=== PATIENT | male | born 1960 | race Caucasian/White ===

== ENCOUNTER 2017-12-08 06:13 | Inpatient (IN) | payer MEDICARE, OTHER ==
[2017-12-08] MEDS ORDERED: DIPH,PERTUS(ACELL)TETVAC-LF 0.5 ML VIAL IM ONE (06:26)
[2017-12-08 06:50] LABS: Basophils # (A) 0.1 k/uL (0-0.2); Basophils % (A) 1 %; Eosinophils # (A) 0.1 k/uL (0-0.7); Eosinophils % (A) 1 %; HCT 36.5 % (39.0-53.0); HGB 11.8 gm/dL (13.0-17.5); Lymphocytes # (A) 1.6 k/uL (1.0-4.8); Lymphocytes % (A) 19 %; MCH 32.5 pg (25.0-35.0); MCHC 32.4 g/dL (31.0-37.0); MCV 100.3 fL (80.0-100.0); Mean Platelet Volume 7.5; Monocytes # (A) 0.8 k/uL (0-1.0); Monocytes % (A) 9 %; Neutrophils # (A) 5.8 k/uL (1.3-7.7); Neutrophils % (A) 68 %; Platelet Count 181 k/uL (150-450); RBC 3.64 m/uL (4.30-5.90); RDW 13.3 % (11.5-15.5); WBC 8.5 k/uL (3.8-10.6)
--- NOTE | 2017-12-08 06:54 | ED ---
Fall HPI - General Source: EMS Mode of arrival: EMS - History of Present Illness MD Complaint: fall -: minutes(s) Fall From: down stairs (#) When Fall Occurred: [address] [facility] [address] Fall Occurred: home Loss of Consciousness: none Prolonged Down Time?: no Severity: mild Context: tripped/slipped <NaderAlvin - Last Filed: 12/08/17 06:56> <Poli Saucedo - Last Filed: 12/08/17 09:36> - General Chief Complaint: Fall Stated Complaint: Fall,SOB Time Seen by Provider: 12/08/17 06:18 - Related Data Allergies Allergy/AdvReac Type Severity Reaction Status Date / Time No Known Allergies Allergy Verified 12/08/17 06:26 Review of Systems ROS Other: All systems not noted in ROS Statement are negative. Constitutional: Denies: fever, chills ENT: Denies: epistaxis Respiratory: Reports: dyspnea Cardiovascular: Reports: palpitations, edema. Denies: chest pain, orthopnea, syncope Gastrointestinal: Denies: abdominal pain, vomiting, diarrhea Genitourinary: Denies: dysuria Musculoskeletal: Denies: back pain Skin: Reports: lesions. Denies: rash Neurological: Denies: headache (Skin tear) <Alvin Doe - Last Filed: 12/08/17 06:56> ROS Other: All systems not noted in ROS Statement are negative. <Poli Saucedo - Last Filed: 12/08/17 09:36> ROS Statement: Those systems with pertinent positive or pertinent negative responses have been documented in the HPI. Past Medical History Past Medical History: Chest Pain / Angina, COPD, CVA/TIA, Hypertension, Pneumonia, Skin Disorder Additional Past Medical History / Comment(s): bad back, History of Any Multi-Drug Resistant Organisms: None Reported Past Surgical History: No Surgical Hx Reported Past Psychological History: Depression Smoking Status: Current every day smoker Past Alcohol Use History: Abuse, Daily Past Drug Use History: Marijuana <Alvin Doe - Last Filed: 12/08/17 06:56> General Exam Limitations: no limitations General appearance: alert, in distress Head exam: Present: atraumatic, normocephalic Eye exam: Present: normal appearance. Absent: scleral icterus, conjunctival injection ENT exam: Present: mucous membranes dry Neck exam: Present: normal inspection, full ROM. Absent: tenderness Respiratory exam: Present: respiratory distress (Tachypnea), rhonchi. Absent: wheezes, stridor Cardiovascular Exam: Present: normal rhythm, tachycardia, normal heart sounds. Absent: systolic murmur, diastolic murmur, rubs, gallop GI/Abdominal exam: Present: soft, other (Ascites) Extremities exam: Present: normal capillary refill, pedal edema. Absent: calf tenderness Back exam: Absent: CVA tenderness (R), CVA tenderness (L), vertebral tenderness Neurological exam: Present: alert, CN II-XII intact. Absent: motor sensory deficit Skin exam: Present: warm, dry, normal color, other (Skin tear and abrasion right forearm). Absent: rash <Alvin Doe - Last Filed: 12/08/17 06:56> Course <Alvin Doe - Last Filed: 12/08/17 06:56> <Poli Saucedo - Last Filed: 12/08/17 09:36> Vital Signs 12/08/17 12/08/17 06:16 07:07 Temperature 97.7 F Pulse Rate 132 H 129 H Respiratory 26 H 14 Rate Blood Pressure 151/109 102/83 O2 Sat by Pulse 99 96 Oximetry - Reevaluation(s) Reevaluation #1: 12/08/17 08:20 EKG shows sinus tachycardia 132. Motion artifact is present. NJ 124. QRS 60. QT 296. QTc 438. Right axis. Appearance of probable Q waves V1 and V2. No definite ST change. 12/08/17 09:28 Patient was reevaluated by myself, Dr. Saucedo. Patient resting comfortably in bed. Patient does have massive abdominal ascites and associated leg edema. Patient states he believes his dyspnea is secondary to his abdominal distention. Patient states he has been losing weight over the past several months with increasing ascites. Patient states he no longer sees Dr. Ramos. Patient states he previously was taking Vicodin 3 times a day however this was discontinued. 12/08/17 09:36 Case was discussed in detail with Dr. Mo, who will admit for hospital call. (Poli Saucedo) Medical Decision Making - Lab Data Result diagrams: 12/08/17 06:30 <Alvin Doe - Last Filed: 12/08/17 06:56> - Lab Data Result diagrams: 12/08/17 06:30 12/08/17 06:30 <LewisPoli - Last Filed: 12/08/17 09:36> - Lab Data Lab Results 12/08/17 12/08/17 12/08/17 Range/Units 06:30 06:30 06:30 WBC 8.5 (3.8-10.6) k/uL RBC 3.64 L (4.30-5.90) m/uL Hgb 11.8 L (13.0-17.5) gm/dL Hct 36.5 L (39.0-53.0) % MCV 100.3 H (80.0-100.0) fL MCH 32.5 (25.0-35.0) pg MCHC 32.4 (31.0-37.0) g/dL RDW 13.3 (11.5-15.5) % Plt Count 181 (150-450) k/uL Neutrophils % 68 % Lymphocytes % 19 % Monocytes % 9 % Eosinophils % 1 % Basophils % 1 % Neutrophils # 5.8 (1.3-7.7) k/uL Lymphocytes # 1.6 (1.0-4.8) k/uL Monocytes # 0.8 (0-1.0) k/uL Eosinophils # 0.1 (0-0.7) k/uL Basophils # 0.1 (0-0.2) k/uL PT (9.0-12.0) sec INR (<1.2) APTT (22.0-30.0) sec Sodium 140 (137-145) mmol/L Potassium 4.3 (3.5-5.1) mmol/L Chloride 107 (98-107) mmol/L Carbon Dioxide 24 (22-30) mmol/L Anion Gap 9 mmol/L BUN 7 L (9-20) mg/dL Creatinine 0.56 L (0.66-1.25) mg/dL Est GFR (CKD-EPI)AfAm >90 (>60 ml/min/1.73 sqM) Est GFR (CKD-EPI)NonAf >90 (>60 ml/min/1.73 sqM) Glucose 106 H (74-99) mg/dL Plasma Lactic Acid Naman 3.9 H* (0.7-2.0) mmol/L Calcium 8.2 L (8.4-10.2) mg/dL Total Bilirubin 1.9 H (0.2-1.3) mg/dL AST 100 H (17-59) U/L ALT 27 (21-72) U/L Alkaline Phosphatase 338 H (38-126) U/L Ammonia 24 (<30) umol/L Troponin I (0.000-0.034) ng/mL NT-Pro-B Natriuret Pep pg/mL Total Protein 8.2 (6.3-8.2) g/dL Albumin 2.8 L (3.5-5.0) g/dL Urine Color Urine Appearance (Clear) Urine pH (5.0-8.0) Ur Specific [place] (1.001-1.035) Urine Protein (Negative) Urine Glucose (UA) (Negative) Urine Ketones (Negative) Urine Blood (Negative) Urine Nitrite (Negative) Urine Bilirubin (Negative) Urine Urobilinogen (<2.0) mg/dL Ur Leukocyte Esterase (Negative) 12/08/17 12/08/17 12/08/17 Range/Units 06:30 06:30 07:10 WBC (3.8-10.6) k/uL RBC (4.30-5.90) m/uL Hgb (13.0-17.5) gm/dL Hct (39.0-53.0) % MCV (80.0-100.0) fL MCH (25.0-35.0) pg MCHC (31.0-37.0) g/dL RDW (11.5-15.5) % Plt Count (150-450) k/uL Neutrophils % % Lymphocytes % % Monocytes % % Eosinophils % % Basophils % % Neutrophils # (1.3-7.7) k/uL Lymphocytes # (1.0-4.8) k/uL Monocytes # (0-1.0) k/uL Eosinophils # (0-0.7) k/uL Basophils # (0-0.2) k/uL PT 11.1 (9.0-12.0) sec INR 1.2 H (<1.2) APTT 25.8 (22.0-30.0) sec Sodium (137-145) mmol/L Potassium (3.5-5.1) mmol/L Chloride (98-107) mmol/L Carbon Dioxide (22-30) mmol/L Anion Gap mmol/L BUN (9-20) mg/dL Creatinine (0.66-1.25) mg/dL Est GFR (CKD-EPI)AfAm (>60 ml/min/1.73 sqM) Est GFR (CKD-EPI)NonAf (>60 ml/min/1.73 sqM) Glucose (74-99) mg/dL Plasma Lactic Acid Naman (0.7-2.0) mmol/L Calcium (8.4-10.2) mg/dL Total Bilirubin (0.2-1.3) mg/dL AST (17-59) U/L ALT (21-72) U/L Alkaline Phosphatase (38-126) U/L Ammonia (<30) umol/L Troponin I <0.012 (0.000-0.034) ng/mL NT-Pro-B Natriuret Pep 188 pg/mL Total Protein (6.3-8.2) g/dL Albumin (3.5-5.0) g/dL Urine Color Urine Appearance (Clear) Urine pH (5.0-8.0) Ur Specific [place] (1.001-1.035) Urine Protein (Negative) Urine Glucose (UA) (Negative) Urine Ketones (Negative) Urine Blood (Negative) Urine Nitrite (Negative) Urine Bilirubin (Negative) Urine Urobilinogen (<2.0) mg/dL Ur Leukocyte Esterase (Negative) 12/08/17 Range/Units 08:46 WBC (3.8-10.6) k/uL RBC (4.30-5.90) m/uL Hgb (13.0-17.5) gm/dL Hct (39.0-53.0) % MCV (80.0-100.0) fL MCH (25.0-35.0) pg MCHC (31.0-37.0) g/dL RDW (11.5-15.5) % Plt Count (150-450) k/uL Neutrophils % % Lymphocytes % % Monocytes % % Eosinophils % % Basophils % % Neutrophils # (1.3-7.7) k/uL Lymphocytes # (1.0-4.8) k/uL Monocytes # (0-1.0) k/uL Eosinophils # (0-0.7) k/uL Basophils # (0-0.2) k/uL PT (9.0-12.0) sec INR (<1.2) APTT (22.0-30.0) sec Sodium (137-145) mmol/L Potassium (3.5-5.1) mmol/L Chloride (98-107) mmol/L Carbon Dioxide (22-30) mmol/L Anion Gap mmol/L BUN (9-20) mg/dL Creatinine (0.66-1.25) mg/dL Est GFR (CKD-EPI)AfAm (>60 ml/min/1.73 sqM) Est GFR (CKD-EPI)NonAf (>60 ml/min/1.73 sqM) Glucose (74-99) mg/dL Plasma Lactic Acid Naman (0.7-2.0) mmol/L Calcium (8.4-10.2) mg/dL Total Bilirubin (0.2-1.3) mg/dL AST (17-59) U/L ALT (21-72) U/L Alkaline Phosphatase (38-126) U/L Ammonia (<30) umol/L Troponin I (0.000-0.034) ng/mL NT-Pro-B Natriuret Pep pg/mL Total Protein (6.3-8.2) g/dL Albumin (3.5-5.0) g/dL Urine Color Light [place] Urine Appearance Clear (Clear) Urine pH 6.0 (5.0-8.0) Ur Specific [place] 1.014 (1.001-1.035) Urine Protein Trace H (Negative) Urine Glucose (UA) Negative (Negative) Urine Ketones Negative (Negative) Urine Blood Negative (Negative) Urine Nitrite Negative (Negative) Urine Bilirubin 1+ H (Negative) Urine Urobilinogen 12.0 (<2.0) mg/dL Ur Leukocyte Esterase Negative (Negative) Disposition <Alvin Doe - Last Filed: 12/08/17 06:56> Is patient prescribed a controlled substance at d/c from ED?: No Decision Time: 09:36 <Poli Saucedo - Last Filed: 12/08/17 09:36> Clinical Impression: Ascites Disposition: ADMITTED IP TO THIS [facility] Referrals: None,Stated [Primary Care Provider] - 1-2 days
[2017-12-08 06:58] LABS: INR 1.2 (<1.2); Partial Thromboplastin Time 25.8 sec (22.0-30.0); Prothrombin Time 11.1 sec (9.0-12.0)
[2017-12-08 07:05] LABS: ALT 27 U/L (21-72); AST 100 U/L (17-59); Albumin 2.8 g/dL (3.5-5.0); Alkaline Phosphatase 338 U/L (38-126); Anion Gap 9 mmol/L; Blood Urea Nitrogen 7 mg/dL (9-20); Calcium 8.2 mg/dL (8.4-10.2); Carbon Dioxide 24 mmol/L (22-30); Chloride 107 mmol/L (98-107); Glucose 106 mg/dL (74-99); Potassium 4.3 mmol/L (3.5-5.1); Sodium 140 mmol/L (137-145); Total Bilirubin 1.9 mg/dL (0.2-1.3); Total Protein 8.2 g/dL (6.3-8.2)
[2017-12-08 07:12] LABS: Lactic Acid, Venous 3.9 mmol/L (0.7-2.0)
--- NOTE | 2017-12-08 07:14 | XR ---
EXAM: XR Chest, 1 View CLINICAL HISTORY: ITS.REASON XR Reason: Fever Patient presents with SOB. H/x of COPD TECHNIQUE: Frontal view of the chest. COMPARISON: No relevant prior studies available. FINDINGS: Lungs: Low lung volumes. Right basilar atelectasis. Minimal patchy opacity in the right lateral lung. Pleural space: Small right pleural effusion. No pneumothorax. Heart: Unremarkable. No cardiomegaly. Mediastinum: Unremarkable. Bones/joints: Unremarkable. IMPRESSION: 1. Right basilar atelectasis and minimal patchy opacity in the right lateral lung. Favor low lung volumes and areas of atelectasis although pneumonia not excluded. 2. Small right pleural effusion
[2017-12-08] MEDS ORDERED: MORPHINE SULFATE 4 MG/ML SYRINGE IVP STA (08:10)
[2017-12-08 09:11] LABS: Appearance,Urine Clear (Clear); Bilirubin,Urine 1+ (Negative); Blood,Urine Negative (Negative); Color,Urine Light Orange; Glucose,Urine (UA) Negative (Negative); Ketones,Urine Negative (Negative); Leukocyte Esterase,Urine Negative (Negative); Nitrite,Urine Negative (Negative); Protein,Urine Trace (Negative); Specific Gravity,Urine 1.014 (1.001-1.035)
[2017-12-08] MEDS ORDERED: NALOXONE 0.4 MG/ML 1 ML VIAL IV PRN (09:36)
[2017-12-08] MEDS ORDERED: FUROSEMIDE 10 MG/ML 4 ML VIAL IV STA (14:37)
[2017-12-08] MEDS ORDERED: MORPHINE ORAL SOLN 10 MG/5 ML CUP PO PRN (14:39)
[2017-12-08] MEDS ORDERED: IOPAMIDOL-300 CONTRAST 30 ML VIAL (ORAL USE) PO PRN (14:40)
[2017-12-08] MEDS ORDERED: THIAMINE 100 MG/ML 2 ML VIAL IM STA (14:44)
[2017-12-08] MEDS ORDERED: LORazepam 2 MG/ML INJ IV PRN ×2 (14:44)
--- NOTE | 2017-12-08 15:01 | P.HPIM ---
History of Present Illness H&P Date: 12/08/17 Chief Complaint: fall Patient is a 57-year-old male with a past medical history of hypertension, COPD, chronic back pain, prior stroke, and coronary artery disease who presented to the ER via EMS after a fall. Patient had to crawl to his phone was unable to get himself up. He therefore called EMS and brought to the hospital. On initial evaluation his found to be tachycardic. Initial laboratory analysis showed an elevated total bilirubin and elevated alkaline phosphatase and AST. His albumin was slightly low at 2.8 and PTT was within normal range at 11.1. His lactic acid was slightly elevated at 3.9. Urinalysis was negative. CBC demonstrated a macrocytic anemia. Chest x-ray showed possible right lower lobe atelectasis versus infiltrate. The ER was concerned about gross ascites on clinical exam and asked for admission. Patient seen and examined at bedside in the emergency department. He states today he was walking up the stairs and fell. He was unable to get up and crawled to the phone and called EMS. He suffered skin tears to his upper arms. He denies any unusual pain. He is complaining of significant lower back pain which he has chronically. He states that he has been having edema in his lower extremities and started to notice bloating of his stomach for the last 3-4 months. He has been chronically short of breath times one year. He last saw a doctor approximately 6 months to one year ago but was discharged from Dr. Marie's practice due to chronic narcotic use. He reports no history of known liver disease or hepatitis but he does drink 2 beers daily for numerous years. He reports that he had heavier alcohol use in his 20s. He also reports intermittent diarrhea and constipation. He has also had episodes of sudden onset bowel urgency that led to PVCs or possible blood running down his legs if he could not get to the toilet in time. He also reports urinary urgency. He has a chronic cough which is unchanged and nonproductive. He is not taking any medications currently but states that he was taking about 8 pills including chronic Vicodin use. He reports no recent fevers, chills, nausea, or vomiting. He has lost approximately 30 pounds. He does not report any light stools or dark urine. He has never seen a wheel buffer in the past. He lives alone and his daughter who is 15 stays with a guardian. Review of Systems Pertinent positives and negatives as discussed in HPI, a complete review of systems was performed and all other systems are negative. Past Medical History Past Medical History: Chest Pain / Angina, COPD, CVA/TIA, Hypertension, Pneumonia, Skin Disorder Additional Past Medical History / Comment(s): Chronic back pain, depression History of Any Multi-Drug Resistant Organisms: None Reported Past Surgical History: No Surgical Hx Reported Past Psychological History: Depression Smoking Status: Current every day smoker Past Alcohol Use History: Abuse, Daily Additional Past Alcohol Use History / Comment(s): Drinks 2 beers daily. History of heavy alcohol use in the past. Past Drug Use History: Marijuana - Past Family History Mother Additional Family Medical History / Comment(s): from a motor vehicle accident in her early 30s Father Additional Family Medical History / Comment(s): Pased away from myocardial infarction at age 54 Medications and Allergies Home Medications Medication Instructions Recorded Confirmed Type No Known Home Medications 12/08/17 12/08/17 History Allergies Allergy/AdvReac Type Severity Reaction Status Date / Time No Known Allergies Allergy Verified 12/08/17 11:21 Physical Exam Osteopathic Statement: *. No significant issues noted on an osteopathic structural exam other than those noted in the History and Physical/Consult. Vitals: Vital Signs Temp Pulse Resp BP Pulse Ox 12/08/17 13:30 16 123/96 98 12/08/17 13:00 116 H 16 102/91 100 12/08/17 12:30 18 116/103 97 12/08/17 12:00 106 H 17 102/88 98 12/08/17 11:30 108 H 16 108/85 99 12/08/17 11:00 18 121/96 99 12/08/17 10:30 110 H 12 122/97 98 12/08/17 10:00 107 H 17 118/91 99 12/08/17 09:30 111 H 16 106/84 97 12/08/17 09:00 110 H 11 L 105/88 98 12/08/17 08:30 115 H 19 108/87 98 12/08/17 08:00 14 102/82 97 12/08/17 07:30 10 L 106/91 96 12/08/17 07:07 129 H 14 102/83 96 12/08/17 06:16 97.7 F 132 H 26 H 151/109 99 Intake and Output 12/07/17 12/08/17 12/08/17 22:59 06:59 14:59 Other: Weight 103.873 kg General: non toxic, moderate distress, disheveled, appears at stated age, normal weight Derm: Multiple abrasions right upper extremity the largest measuring approximately 1.5 cm, multiple bruises bilateral upper extremities, warm, dry Head: atraumatic, normocephalic, symmetric Eyes: EOMI, no lid lag, anicteric sclera, pupils equal round reactive to light ENT: Nose and ears atraumatic, no thrush, no pharyngeal erythema Neck: No thyromegaly, no cervical lymphadenopathy, trachea midline, supple Mouth: no lip lesion, mucus membranes moist Cardiovascular: S1 and S2 tachycardic, no murmur, positive posterior tibial pulse bilateral, 4+ edema bilateral lower extremities, capillary refill less than 2 seconds Lungs: CTA bilateral, no rhonchi, no rales , no accessory muscle use Abdominal: Grossly distended with A medusa and ascites, soft, nontender to palpation, no guarding, no appreciable organomegaly but limited due to ascites, normal bowel sounds Ext: no gross muscle atrophy, strength 4 out of 5 in bilateral upper extremities and 3 out of 5 in bilateral lower extremities, no contractures, Neuro: CN II-XI grossly intact, light touch intact all 4 extremities, Psych: Alert, oriented, appropriate affect Results CBC & Chem 7: 12/08/17 06:30 12/08/17 06:30 Labs: Abnormal Lab Results - Last 24 Hours (Table) 12/08/17 12/08/17 12/08/17 Range/Units 06:30 06:30 06:30 RBC 3.64 L (4.30-5.90) m/uL Hgb 11.8 L (13.0-17.5) gm/dL Hct 36.5 L (39.0-53.0) % MCV 100.3 H (80.0-100.0) fL INR (<1.2) BUN 7 L (9-20) mg/dL Creatinine 0.56 L (0.66-1.25) mg/dL Glucose 106 H (74-99) mg/dL Plasma Lactic Acid Naman 3.9 H* (0.7-2.0) mmol/L Calcium 8.2 L (8.4-10.2) mg/dL Total Bilirubin 1.9 H (0.2-1.3) mg/dL AST 100 H (17-59) U/L Alkaline Phosphatase 338 H (38-126) U/L Albumin 2.8 L (3.5-5.0) g/dL Urine Protein (Negative) Urine Bilirubin (Negative) 12/08/17 12/08/17 12/08/17 Range/Units 06:30 08:46 10:39 RBC (4.30-5.90) m/uL Hgb (13.0-17.5) gm/dL Hct (39.0-53.0) % MCV (80.0-100.0) fL INR 1.2 H (<1.2) BUN (9-20) mg/dL Creatinine (0.66-1.25) mg/dL Glucose (74-99) mg/dL Plasma Lactic Acid Naman 2.5 H* (0.7-2.0) mmol/L Calcium (8.4-10.2) mg/dL Total Bilirubin (0.2-1.3) mg/dL AST (17-59) U/L Alkaline Phosphatase (38-126) U/L Albumin (3.5-5.0) g/dL Urine Protein Trace H (Negative) Urine Bilirubin 1+ H (Negative) Chest x-ray: report reviewed, image reviewed (RLL atelectasis) Thrombosis Risk Factor Assmnt - DVT/VTE Prophylaxis DVT/VTE Prophylaxis: Pharmacologic Prophylaxis ordered - Choose All That Apply Each Factor Represents 1 point: Abnormal pulmonary function (COPD), Age 41-60 years, Obesity (BMI >25), Swollen legs (current), Varicose veins Thrombosis Risk Factor Assessment Total Risk Factor Score: 5 Thrombosis Risk Factor Assessment Level: High Risk Assessment and Plan Assessment: Ascites suspect underlying cirrhosis -Lasix IV twice a day -GI consultation -CT abdomen and pelvis -Check acute hepatitis profile, Tylenol level - CMP and INR in AM -Will need paracentesis but this will likely be done on fall with multiple skin tears -Fall precautions -PT/OT evaluation -May need alf facility on discharge EtOH abuse with possible impending DTs -Thiamine supplementation -[facility] protocol Macrocytic anemia -Check B12, TSH, and folic acid -Repeat CBC in a.m. Elevated lactic acid -Likely secondary to liver dysfunction, decreasing and recheck -Contraindicated for bolus due to massive amounts of fluid overload Chronic low back pain -As needed pain medication The patient is admitted with an anticipated greater than 2 midnight stay for evaluation of ascites with likely underlying liver disease. Surrogate decision-maker: Tony Reaves CODE STATUS:Full DVT prophylaxis: Lovenox Discussed with: PAtient, nursing, ED physician Anticipated discharge date: 3-[address]: [facility] A total of 75 minutes was spent on the care of this complex patient more than 50 % of the time was spent in counseling and care coordination.
[2017-12-08] MEDS: MORPHINE SULFATE 4 MG/ML SYRINGE IVP PRN ×2 (15:18→20:51)
[2017-12-08] MEDS: SODIUM CHLORIDE 0.9% 1,000 ML IV SCH (15:35)
--- NOTE | 2017-12-08 17:12 | CT ---
EXAMINATION TYPE: CT abdomen pelvis wo con DATE OF EXAM: 12/08/2017 COMPARISON: None HISTORY: abdominal pain and distention CT DLP: 1093 mGycm Automated exposure control for dose reduction was used. TECHNIQUE: Helical acquisition of images was performed from the lung bases through the pelvis. FINDINGS: There is right pleural effusion. Heart size is normal. There is no pericardial effusion. There is massive ascites. Liver is irregular consistent with cirrhosis. There is variable hypodensity throughout the liver. Spleen is intact. There is no pancreatic mass. There is no evidence of a bowel obstruction. The stomach is large. Small bowel is normally opacified with the oral contrast. There i s no retroperitoneal adenopathy. Kidneys have fairly normal size. There is no hydronephrosis. The lila dder distends smoothly. I see no mesenteric adenopathy. There is no evidence of free air. Lumbar spin e is intact. Bony pelvis is intact. IMPRESSION: MASSIVE ASCITES. MODERATE SIZE RIGHT PLEURAL EFFUSION. CHANGES IN THE LIVER CONSISTENT WITH ADVANCED CIRRHOSIS.
[2017-12-08] MEDS: FUROSEMIDE 10 MG/ML 4 ML VIAL IV SCH (20:46)
[2017-12-08] MEDS: THIAMINE 100 MG TAB PO SCH (20:46)
[2017-12-08] MEDS: NICOTINE 14MG/24HR PATCH TRANSDERM SCH (20:47)
[2017-12-08 22:58] LABS: Hepatitis A Antibody IgM Non-Reactive (Non-Reactive); Hepatitis B Core IgM Non-Reactive (Non-Reactive)
[2017-12-09] MEDS: MORPHINE SULFATE 4 MG/ML SYRINGE IVP PRN ×5 (00:52→21:24)
[2017-12-09 06:35] LABS: INR 1.3 (<1.2); Prothrombin Time 12.5 sec (9.0-12.0)
[2017-12-09 06:40] LABS: ALT 26 U/L (21-72); AST 74 U/L (17-59); Acetaminophen <10.0 ug/mL; Albumin 2.2 g/dL (3.5-5.0); Alkaline Phosphatase 266 U/L (38-126); Anion Gap 5 mmol/L; Blood Urea Nitrogen 8 mg/dL (9-20); Calcium 7.7 mg/dL (8.4-10.2); Carbon Dioxide 26 mmol/L (22-30); Chloride 105 mmol/L (98-107); Glucose 93 mg/dL (74-99); Magnesium 1.6 mg/dL (1.6-2.3); Potassium 3.4 mmol/L (3.5-5.1); Sodium 136 mmol/L (137-145); Total Bilirubin 2.7 mg/dL (0.2-1.3); Total Protein 6.8 g/dL (6.3-8.2)
[2017-12-09] MEDS: SODIUM CHLORIDE 0.9% 1,000 ML IV SCH (09:18)
[2017-12-09] MEDS: FUROSEMIDE 10 MG/ML 4 ML VIAL IV SCH ×3 (09:27→23:15)
[2017-12-09] MEDS: ENOXAPARIN 40 MG/0.4 ML SYRINGE SQ SCH (09:27)
[2017-12-09] MEDS: NICOTINE 14MG/24HR PATCH TRANSDERM SCH (09:28)
[2017-12-09] MEDS: MULTIVITAMINS, THERA 1 EACH TAB PO SCH (12:43)
[2017-12-09] MEDS: THIAMINE 100 MG TAB PO SCH ×2 (12:43→16:56)
[2017-12-09] MEDS ORDERED: POTASSIUM BICARBONATE/CIT AC 20 MEQ TABLET.EFF PO ONE (12:57)
--- NOTE | 2017-12-09 14:03 | CONS ---
CONSULTATION DATE OF CONSULTATION: December 09, 2017. REASON FOR CONSULTATION: Massive ascites and liver cirrhosis. REQUESTING PHYSICIAN: Dr. Mo. HISTORY OF PRESENT ILLNESS: The patient is a 57 -year-old white male admitted to the hospital with significant abdominal distention for the last several months duration. Apparently, he was at home, was unable to ambulate well and he fell and caught himself and unable to get up. We called EMS and he was subsequently brought to the emergency room. The patient has not seen a physician for the last 6 months duration. He has been having abdominal distention for the last 6 months progressively getting worse. Some vague abdominal discomfort. No nausea, no vomiting. The patient has history of alcohol abuse in the past but he says that it has not been heavy. He was a [id number] drinker. Used to drink two 24 ounces of liquor every day. Much more heavily in his younger days. No history of jaundice or hepatitis in the past. He came to the emergency room and had a CT of the abdomen and pelvis done that showed evidence of and pleuritic appearing liver. He states that he lost about 30 pounds in the last 6 months duration. PAST MEDICAL HISTORY: Significant for COPD, hypertension. Past surgical history unremarkable. MEDICATIONS: At home none. ALLERGIES: No known drug allergies. FAMILY HISTORY: Mother from motor vehicle accident. Father had IA. REVIEW OF SYSTEMS: Cardiopulmonary: No chest pain or shortness of breath. Genitourinary: No dysuria or hematuria. Musculoskeletal: Weakness. Neurological: Unremarkable. Psychiatric: Unremarkable. ENT/VISION: Unremarkable. Constitutional: Weight loss of 30 pounds. No fevers, chills or night sweats. PHYSICAL EXAMINATION: He appears comfortable in no apparent distress. Vital signs stable. Blood pressure is 100/68, pulse rate 108, temperature 98.4. HEENT examination unremarkable. Conjunctivae pink. Sclerae anicteric. Oral cavity no lesions. Neck no jugular venous distention or lymph node enlargement. Chest was clear to auscultation. HEART: Regular rate and rhythm. ABDOMEN: Soft, extremely distended. There was significant amount of free fluid noted. There was an umbilical hernia seen. EXTREMITIES: 2+ pedal edema. Skin no rashes. NEUROLOGIC: Alert and oriented x3. No focal deficits. LAB: INR is 1.3. WBC 8.5, hemoglobin 11.5, platelets are normal. BUN is 8, creatinine 0.47, T-bilirubin 2.7, AST 74, ALT 26, alkaline phosphatase 266. Hepatitis A, B, and C negative. CT of the abdomen and pelvis showed massive ascites with moderate right- sided pleural effusion and changes in the liver consistent with advanced cirrhosis. IMPRESSION: 1. Patient with history of [id number] alcohol abuse for several years duration, presents to the hospital with new onset ascites/severe abdominal distention. CT of the abdomen showed massive ascites and cirrhotic appearing liver. Hepatitis serologies for A, B, and C were negative. 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 2. Progressive weight loss of 30 pounds over the last 6 months duration. 3. Multiple falls probably related to muscle weakness. RECOMMENDATIONS: 1. Admit him for large volume paracentesis for diagnostic and therapeutic purposes. 2. Continue with the diuretics with Lasix 40 mg q.12 hours and we will add Aldactone 100 mg daily. 3. Low-salt diet. 4. I had a lengthy discussion with the patient for management of advanced liver disease and advised him to quit drinking alcohol completely. Thank you for this consultation. We will follow the patient closely with you during this hospital stay. MMODL / IJN: [id number] /
[2017-12-09] MEDS: SPIRONOLACTONE 25 MG TAB PO SCH (14:21)
[2017-12-09] MEDS: MAGNESIUM SULFATE-D5W PMX 1 GM in DEXTROSE/WATER 1 100ML.BAG IVPB SCH ×2 (14:22→16:28)
[2017-12-09] MEDS: LORazepam 2 MG/ML INJ IV PRN (21:28)
--- NOTE | 2017-12-09 21:31 | P.PN ---
Subjective Progress Note Date: 12/09/17 Principal diagnosis: Abdominal Pain Patient is a 57-year-old male with a past medical history of hypertension, COPD, chronic back pain, prior stroke, and coronary artery disease who presented to the ER via EMS after a fall. Patient had to crawl to his phone was unable to get himself up. He therefore called EMS and brought to the hospital. On initial evaluation his found to be tachycardic. Initial laboratory analysis showed an elevated total bilirubin and elevated alkaline phosphatase and AST. His albumin was slightly low at 2.8 and PTT was within normal range at 11.1. His lactic acid was slightly elevated at 3.9. Urinalysis was negative. CBC demonstrated a macrocytic anemia. Chest x-ray showed possible right lower lobe atelectasis versus infiltrate. The ER was concerned about gross ascites on clinical exam and asked for admission. He underwent a CT abdomen and pelvis which showed cirrhosis with gross ascites. He was placed on Lasix. On the morning of 12/09 he still had significant ascites and Aldactone was added. He was seen by GI. Jayden seen and examined at bedside. He complains of shortness of breath and increasing back pain. He states has been going to the bathroom quite frequently. He is also having some episodes of incontinence. No diarrhea or constipation noted at this time. Discussed plan of care and plans for paracentesis in a.m. Patient is in agreement. Objective - Vital Signs Vital signs: Vital Signs Temp 98.2 F 12/09/17 16:00 Pulse 109 H 12/09/17 16:00 Resp 20 12/09/17 16:00 BP 106/73 12/09/17 16:00 Pulse Ox 98 12/09/17 16:00 Intake & Output 12/09/17 12/09/17 12/10/17 06:59 18:59 06:59 Intake Total 440 908 500 Output Total 300 2050 Balance 140 -1142 500 Weight 97.2 kg Intake: Intake, IV Titration 200 Amount Magnesium Sulfate-D5w Pmx 200 1 gm In Dextrose/Water 1 100ml.bag @ 100 mls/hr IVPB Q1H [facility] Rx#: [id number] Oral 440 708 500 Output: Urine 300 2050 Other: Voiding Method Urinal - Exam General: non toxic, moderate distress, disheveled, appears at stated age, normal weight Derm: Multiple abrasions right upper extremity with dressings inplace, multiple bruises bilateral upper extremities, warm, dry Head: atraumatic, normocephalic, symmetric Eyes: EOMI, no lid lag, anicteric sclera, pupils equal round reactive to light Cardiovascular: S1 and S2 tachycardic, no murmur, positive posterior tibial pulse bilateral, 4+ edema bilateral lower extremities, capillary refill less than 2 seconds Lungs: CTA bilateral, no rhonchi, no rales , no accessory muscle use Abdominal: Grossly distended with A medusa and ascites, soft, nontender to palpation, no guarding, no appreciable organomegaly but limited due to ascites, normal bowel sounds Ext: no gross muscle atrophy, strength 4 out of 5 in bilateral upper extremities and 3 out of 5 in bilateral lower extremities, no contractures, Neuro: CN II-XI grossly intact, light touch intact all 4 extremities, Psych: Alert, oriented, appropriate affect - Labs CBC & Chem 7: 12/08/17 06:30 12/09/17 06:04 Labs: Abnormal Lab Results - Last 24 Hours (Table) 12/09/17 12/09/17 Range/Units 06:04 06:04 PT 12.5 H (9.0-12.0) sec INR 1.3 H (<1.2) Sodium 136 L (137-145) mmol/L Potassium 3.4 L (3.5-5.1) mmol/L BUN 8 L (9-20) mg/dL Creatinine 0.47 L (0.66-1.25) mg/dL Calcium 7.7 L (8.4-10.2) mg/dL Total Bilirubin 2.7 H (0.2-1.3) mg/dL AST 74 H (17-59) U/L Alkaline Phosphatase 266 H (38-126) U/L Albumin 2.2 L (3.5-5.0) g/dL Microbiology - Last 24 Hours (Table) 12/08/17 08:46 Urine Culture - Final Urine,Catheterized 12/08/17 06:30 Blood Culture - Preliminary Blood No Growth after 24 hours Assessment and Plan Assessment: Ascites suspect underlying cirrhosis -Lasix IV increased to TID, Added aldactone -GI recs appreciated -CT abdomen and pelvis - Acute hepatitis panel negative, Tylenol level negative - CMP and INR in AM -Will need paracentesis hopefully in a.m. with diagnostic and therapeutic Fall with multiple skin tears -Fall precautions -PT/OT evaluation -May need detention facility on discharge EtOH abuse with possible impending DTs -Thiamine supplementation -CIWA protocol Hypokalemia and hypomagnesemia -Replace per protocol Severe protein calorie malnutrition -Supplementation -May be component of chronic liver disease Macrocytic anemia -Check B12, TSH, and folic acid -Repeat CBC in a.m. Chronic low back pain -As needed pain medication Elevated lactic acid, improved DVT prophylaxis: Lovenox Discussed with: Patient, nursing Anticipated discharge date: 3-[address]: SNF A total of 35 minutes was spent on the care of this complex patient more than 50 % of the time was spent in counseling and care coordination.
[2017-12-10] MEDS: LORazepam 2 MG/ML INJ IV PRN (06:07)
[2017-12-10 08:30] LABS: INR 1.3 (<1.2); Prothrombin Time 12.3 sec (9.0-12.0)
[2017-12-10 08:37] LABS: ALT 28 U/L (21-72); AST 80 U/L (17-59); Albumin 2.3 g/dL (3.5-5.0); Alkaline Phosphatase 257 U/L (38-126); Anion Gap 7 mmol/L; Blood Urea Nitrogen 9 mg/dL (9-20); Calcium 8.1 mg/dL (8.4-10.2); Carbon Dioxide 27 mmol/L (22-30); Chloride 102 mmol/L (98-107); Glucose 85 mg/dL (74-99); Potassium 3.2 mmol/L (3.5-5.1); Sodium 136 mmol/L (137-145); Total Protein 7.1 g/dL (6.3-8.2)
[2017-12-10 08:38] LABS: HCT 30.4 % (39.0-53.0); MCH 32.9 pg (25.0-35.0); MCHC 32.7 g/dL (31.0-37.0); MCV 100.9 fL (80.0-100.0); Mean Platelet Volume 8.1; Platelet Count 134 k/uL (150-450); RBC 3.02 m/uL (4.30-5.90); RDW 13.1 % (11.5-15.5)
[2017-12-10 08:44] LABS: HGB 9.9 gm/dL (13.0-17.5)
[2017-12-10 09:27] LABS: Folate, Serum 1.6 ng/mL
[2017-12-10] MEDS: FUROSEMIDE 10 MG/ML 4 ML VIAL IV SCH ×2 (10:03→17:36)
[2017-12-10] MEDS: SPIRONOLACTONE 25 MG TAB PO SCH (10:03)
[2017-12-10] MEDS: NICOTINE 14MG/24HR PATCH TRANSDERM SCH (10:04)
--- NOTE | 2017-12-10 10:26 | P.PN ---
Subjective Progress Note Date: 12/10/17 Principal diagnosis: Liver cirrhosis EtOH abuse massive ascites 57-year-old gentleman history of EtOH abuse admitted with worsening abdominal distention ascites. Scheduled for paracentesis today. Nursing staff reports alcohol withdrawal symptoms last night more milder this morning. Total bilirubin 4.0. AST 80. ALT 28. AP 257. INR 1.3. Hemoglobin 9.9. White count 8.0. Platelet 134. Objective - Vital Signs Vital signs: Vital Signs Temp 97.9 F 12/10/17 02:50 Pulse 120 H 12/10/17 02:50 Resp 19 12/10/17 02:50 BP 106/72 12/10/17 02:50 Pulse Ox 96 12/10/17 02:50 Intake & Output 12/09/17 12/10/17 12/10/17 18:59 06:59 18:59 Intake Total 908 500 Output Total 2049 1000 Balance -1142 -500 Weight 80 kg Intake: Intake, IV Titration 200 Amount Magnesium Sulfate-D5w Pmx 200 1 gm In Dextrose/Water 1 100ml.bag @ 100 mls/hr IVPB Q1H [facility] Rx#: [id number] Oral 708 500 Output: Urine 2049 1000 Other: Voiding Method Urinal - Exam General appearance: The patient is alert, to self only in no acute distress confused. HET: Head is normocephalic and atraumatic. Pupils are equal and reactive. Oropharynx is clear without lesions. Neck: Supple without lymphadenopathy. Trachea midline. Heart: S1 S2. Regular rate and rhythm. Lungs: No crackles or wheezes are heard. Abdomen: Soft, grossly distended with massive ascites with bowel sounds. No peritoneal signs. No palpable organomegaly or masses. Extremities: Normal skin color and turgor. No cyanosis, rash, ulceration, clubbing, or edema. Radial and pedal pulses are 2/4 bilaterally. Blackman with dark sarah urine Neurological: No focal deficits. Strength and sensation are grossly intact. - Labs CBC & Chem 7: 12/10/17 07:00 12/10/17 07:00 Labs: Abnormal Lab Results - Last 24 Hours (Table) 12/10/17 12/10/17 12/10/17 Range/Units 07:00 07:00 07:00 RBC 3.02 L (4.30-5.90) m/uL Hgb 9.9 L D (13.0-17.5) gm/dL Hct 30.4 L (39.0-53.0) % MCV 100.9 H (80.0-100.0) fL Plt Count 134 L (150-450) k/uL PT 12.3 H (9.0-12.0) sec INR 1.3 H (<1.2) Sodium 136 L (137-145) mmol/L Potassium 3.2 L (3.5-5.1) mmol/L Creatinine 0.46 L (0.66-1.25) mg/dL Calcium 8.1 L (8.4-10.2) mg/dL Total Bilirubin 4.0 H (0.2-1.3) mg/dL AST 80 H (17-59) U/L Alkaline Phosphatase 257 H (38-126) U/L Albumin 2.3 L (3.5-5.0) g/dL Microbiology - Last 24 Hours (Table) 12/08/17 06:30 Blood Culture - Preliminary Blood No Growth after 48 hours 12/08/17 08:46 Urine Culture - Final Urine,Catheterized Assessment and Plan (1) Ascites Current Visit: Yes Status: Acute Code(s): R18.8 - OTHER ASCITES SNOMED Code(s): 988189432 (2) Liver cirrhosis Current Visit: Yes Status: Acute Code(s): K74.60 - UNSPECIFIED CIRRHOSIS OF LIVER SNOMED Code(s): 85044596 (3) Portal hypertension Current Visit: Yes Status: Acute Code(s): K76.6 - PORTAL HYPERTENSION SNOMED Code(s): 25451823 (4) Alcohol abuse Current Visit: Yes Status: Chronic Code(s): F10.10 - ALCOHOL ABUSE, UNCOMPLICATED SNOMED Code(s): 68244534 (5) Alcohol withdrawal Current Visit: Yes Status: Acute Code(s): F10.239 - ALCOHOL DEPENDENCE WITH WITHDRAWAL, UNSPECIFIED SNOMED Code(s): 011354259 (6) Alcoholic hepatitis with ascites Current Visit: Yes Status: Acute Code(s): K70.11 - ALCOHOLIC HEPATITIS WITH ASCITES SNOMED Code(s): 998813979 (7) Coagulopathy Narrative/Plan: Mild Current Visit: Yes Status: Acute Code(s): D68.9 - COAGULATION DEFECT, UNSPECIFIED SNOMED Code(s): 58583598 Plan: 1. Therapeutic diagnostic paracentesis. Patient will require post- paracentesis albumin. We'll check ammonia level. [facility] protocol. 2. Low-salt diet. 3. Continue Lasix and Aldactone. Assessment and plan a care discussed with Dr. Baker
[2017-12-10] MEDS ORDERED: POTASSIUM BICARBONATE/CIT AC 20 MEQ TABLET.EFF PO ONE (10:36)
[2017-12-10] MEDS ORDERED: SPIRONOLACTONE 25 MG TAB PO STA (10:37)
--- NOTE | 2017-12-10 10:51 | P.PN ---
Subjective Progress Note Date: 12/10/17 Principal diagnosis: Abdominal Pain Patient is a 57-year-old male with a past medical history of hypertension, COPD, chronic back pain, prior stroke, and coronary artery disease who presented to the ER via EMS after a fall. Patient had to crawl to his phone was unable to get himself up. He therefore called EMS and brought to the hospital. On initial evaluation his found to be tachycardic. Initial laboratory analysis showed an elevated total bilirubin and elevated alkaline phosphatase and AST. His albumin was slightly low at 2.8 and PTT was within normal range at 11.1. His lactic acid was slightly elevated at 3.9. Urinalysis was negative. CBC demonstrated a macrocytic anemia. Chest x-ray showed possible right lower lobe atelectasis versus infiltrate. The ER was concerned about gross ascites on clinical exam and asked for admission. He underwent a CT abdomen and pelvis which showed cirrhosis with gross ascites. He was placed on Lasix. On the morning of 12/09 he still had significant ascites and Aldactone was added. He was seen by GI. Plan is for paracentesis today. Lasix and aldactone increased. Went into DTs on the night of 12/10 and had increasing confusion. Patient seen and examined at bedside. Still feeling short of breath. Complaining of increasing abdominal pain. Wants to go home. Currently alert and oriented 3 but lethargic. Neck asleep and then talks about nonsensical things. Objective - Vital Signs Vital signs: Vital Signs Temp 97.9 F 12/10/17 02:50 Pulse 120 H 12/10/17 02:50 Resp 19 12/10/17 02:50 BP 106/72 12/10/17 02:50 Pulse Ox 96 12/10/17 02:50 Intake & Output 12/09/17 12/10/17 12/10/17 18:59 06:59 18:59 Intake Total 908 500 Output Total 2049 1000 Balance -1142 -500 Weight 80 kg Intake: Intake, IV Titration 200 Amount Magnesium Sulfate-D5w Pmx 200 1 gm In Dextrose/Water 1 100ml.bag @ 100 mls/hr IVPB Q1H [facility] Rx#: [id number] Oral 708 500 Output: Urine 2049 1000 Other: Voiding Method Urinal - Exam General: non toxic, mild distress, disheveled, appears at stated age, normal weight Derm: Multiple abrasions right upper extremity with dressings inplace, multiple bruises bilateral upper extremities, warm, dry Head: atraumatic, normocephalic, symmetric Eyes: EOMI, no lid lag, anicteric sclera, pupils equal round reactive to light Cardiovascular: S1 and S2 tachycardic, no murmur, positive posterior tibial pulse bilateral, 4+ edema bilateral lower extremities, capillary refill less than 2 seconds Lungs: CTA bilateral, no rhonchi, no rales , no accessory muscle use Abdominal: Grossly distended with A medusa and ascites, soft, nontender to palpation, no guarding, no appreciable organomegaly but limited due to ascites, normal bowel sounds Ext: no gross muscle atrophy, no contractures, Neuro: CN II-XI grossly intact, light touch intact all 4 extremities, Psych: Alert, oriented, appropriate affect - Labs CBC & Chem 7: 12/10/17 07:00 12/10/17 07:00 Labs: Abnormal Lab Results - Last 24 Hours (Table) 12/10/17 12/10/17 12/10/17 Range/Units 07:00 07:00 07:00 RBC 3.02 L (4.30-5.90) m/uL Hgb 9.9 L D (13.0-17.5) gm/dL Hct 30.4 L (39.0-53.0) % MCV 100.9 H (80.0-100.0) fL Plt Count 134 L (150-450) k/uL PT 12.3 H (9.0-12.0) sec INR 1.3 H (<1.2) Sodium 136 L (137-145) mmol/L Potassium 3.2 L (3.5-5.1) mmol/L Creatinine 0.46 L (0.66-1.25) mg/dL Calcium 8.1 L (8.4-10.2) mg/dL Total Bilirubin 4.0 H (0.2-1.3) mg/dL AST 80 H (17-59) U/L Alkaline Phosphatase 257 H (38-126) U/L Albumin 2.3 L (3.5-5.0) g/dL Microbiology - Last 24 Hours (Table) 12/08/17 06:30 Blood Culture - Preliminary Blood No Growth after 48 hours 12/08/17 08:46 Urine Culture - Final Urine,Catheterized Assessment and Plan Assessment: Ascites suspect underlying cirrhosis -Lasix IV, increased aldactone -GI recs appreciated -CT abdomen and pelvis with cirrhosis - Acute hepatitis panel negative, Tylenol level negative - CMP and INR in AM - plan on paracentesis today EtOH abuse with delirium tremens -Thiamine supplementation -CIWA protocol Fall with multiple skin tears -Fall precautions -PT/OT evaluation -May need jail facility on discharge Hypokalemia and hypomagnesemia -Replace per protocol Severe protein calorie malnutrition -Supplementation -May be component of chronic liver disease Macrocytic anemia with thrombocytopenia - B12, TSH, and folic acid normal - Repeat CBC in a.m. Chronic low back pain -As needed pain medication Elevated lactic acid, improved DVT prophylaxis: Lovenox Discussed with: Patient, nursing Anticipated discharge date: 3-[address]: SNF A total of 35 minutes was spent on the care of this complex patient more than 50 % of the time was spent in counseling and care coordination.
[2017-12-10] MEDS: SODIUM CHLORIDE 0.9% 1,000 ML IV SCH (11:32)
[2017-12-10] MEDS: MORPHINE SULFATE 4 MG/ML SYRINGE IVP PRN ×2 (11:33→17:37)
[2017-12-10] MEDS: THIAMINE 100 MG TAB PO SCH ×2 (13:27→17:36)
[2017-12-10] MEDS: MULTIVITAMINS, THERA 1 EACH TAB PO SCH (13:27)
[2017-12-10] MEDS: ENOXAPARIN 40 MG/0.4 ML SYRINGE SQ SCH (13:28)
[2017-12-10] MEDS: ALBUMIN HUMAN 25% 50 ML in EMPTY BAG 1 BAG IVPB SCH ×7 (17:36→23:26)
[2017-12-10 18:06] LABS: Appearance,BF Clear; Nucleated Cells, Body Fluid 20 /uL; RBC, Body Fluid 90 /uL
[2017-12-10 18:32] LABS: Mononuclear WBC,Body Fluid 96 %; Polynuclear WBC,Body Fluid 4 %; Total Cells Counted,Body Fluid 100
[2017-12-11] MEDS: MORPHINE SULFATE 4 MG/ML SYRINGE IVP PRN (02:29)
[2017-12-11] MEDS: FUROSEMIDE 10 MG/ML 4 ML VIAL IV SCH ×2 (02:52→08:35)
[2017-12-11 03:13] LABS: Total Protein, Body Fluid 1830 mg/dL
[2017-12-11 07:15] LABS: HCT 27.7 % (39.0-53.0); HGB 9.3 gm/dL (13.0-17.5); MCH 33.3 pg (25.0-35.0); MCHC 33.6 g/dL (31.0-37.0); MCV 99.2 fL (80.0-100.0); Mean Platelet Volume 7.9; Platelet Count 129 k/uL (150-450); RBC 2.79 m/uL (4.30-5.90); RDW 13.2 % (11.5-15.5); WBC 7.3 k/uL (3.8-10.6)
[2017-12-11 07:45] LABS: ALT 28 U/L (21-72); AST 85 U/L (17-59); Albumin 2.5 g/dL (3.5-5.0); Alkaline Phosphatase 197 U/L (38-126); Anion Gap 5 mmol/L; Blood Urea Nitrogen 9 mg/dL (9-20); Calcium 8.3 mg/dL (8.4-10.2); Carbon Dioxide 32 mmol/L (22-30); Chloride 100 mmol/L (98-107); Glucose 93 mg/dL (74-99); Magnesium 1.6 mg/dL (1.6-2.3); Potassium 3.4 mmol/L (3.5-5.1); Sodium 137 mmol/L (137-145); Total Bilirubin 4.4 mg/dL (0.2-1.3); Total Protein 6.2 g/dL (6.3-8.2)
--- NOTE | 2017-12-11 07:45 | US ---
EXAMINATION TYPE: US paracentesis abd w/image DATE OF EXAM: 12/10/2017 COMPARISON: NONE HISTORY: Ascites. PROCEDURE: Maximal barrier technique was utilized. The skin overlying a suitable pocket of fluid was localized with ultrasound and the overlying skin was prepped and draped. Ultrasound was utilized with sterile technique. Lidocaine was used for local anesthesia and a skin cheryl made with a scalpel. Catheter was advanced under direct ultrasound guidance into a suitable pocket of fluid and approximately 14 liters of serous fluid were removed. Catheter was withdrawn and hemostasis achieved. There is no immediat e complication; the patient is discharged in stable condition. IMPRESSION: STATUS POST ULTRASOUND GUIDED PARACENTESIS FOR PALLIATION OF ASCITES. THIS PROCEDURE WA S PERFORMED BY THE UNDERSIGNED. Specimen sent for laboratory analysis.
--- NOTE | 2017-12-11 08:52 | P.PN ---
Subjective Progress Note Date: 12/11/17 Principal diagnosis: Liver cirrhosis EtOH abuse massive ascites 57-year-old gentleman history of EtOH abuse admitted with worsening abdominal distention ascites. Feels well today. Status post paracentesis yesterday 14 L removed. Received albumin post paracentesis. BUN 9. Creatinine 0.4. Total bilirubin 4.4. AST 85. ALT 20. AP 197. Objective - Vital Signs Vital signs: Vital Signs Temp 97.7 F 12/10/17 21:15 Pulse 117 H 12/11/17 02:56 Resp 18 12/11/17 02:56 BP 95/47 12/10/17 21:15 Pulse Ox 97 12/10/17 20:49 Intake & Output 12/10/17 12/11/17 12/11/17 18:59 06:59 18:59 Intake Total 0 916 240 Output Total 750 Balance 0 166 240 Weight 80 kg 62.2 kg Intake: Intake, IV Titration 250 Amount Albumin Human 25% 50 ml 250 In Empty Bag 1 bag @ 200 mls/hr IVPB Q15M [facility] Rx#: [id number] Oral 0 666 240 Output: Urine 750 Other: Voiding Method Urinal # Voids 5 100 - Exam General appearance: The patient is alert, to self only in no acute distress confused. HET: Head is normocephalic and atraumatic. Pupils are equal and reactive. Oropharynx is clear without lesions. Neck: Supple without lymphadenopathy. Trachea midline. Heart: S1 S2. Regular rate and rhythm. Lungs: No crackles or wheezes are heard. Abdomen: Soft, mild distended with ascites with bowel sounds. No peritoneal signs. No palpable organomegaly or masses. Extremities: BLE edema. Neurological: No focal deficits. Strength and sensation are grossly intact. - Labs CBC & Chem 7: 12/11/17 06:32 12/11/17 06:32 Labs: Abnormal Lab Results - Last 24 Hours (Table) 12/11/17 12/11/17 Range/Units 06:32 06:32 RBC 2.79 L (4.30-5.90) m/uL Hgb 9.3 L (13.0-17.5) gm/dL Hct 27.7 L (39.0-53.0) % Plt Count 129 L (150-450) k/uL Potassium 3.4 L (3.5-5.1) mmol/L Carbon Dioxide 32 H (22-30) mmol/L Creatinine 0.46 L (0.66-1.25) mg/dL Calcium 8.3 L (8.4-10.2) mg/dL Total Bilirubin 4.4 H (0.2-1.3) mg/dL AST 85 H (17-59) U/L Alkaline Phosphatase 197 H (38-126) U/L Total Protein 6.2 L (6.3-8.2) g/dL Albumin 2.5 L (3.5-5.0) g/dL Microbiology - Last 24 Hours (Table) 12/08/17 06:30 Blood Culture - Preliminary Blood No Growth after 72 hours Assessment and Plan (1) Ascites Narrative/Plan: s/p paracentesis Current Visit: Yes Status: Acute Code(s): R18.8 - OTHER ASCITES SNOMED Code(s): 893753070 (2) Liver cirrhosis Current Visit: Yes Status: Acute Code(s): K74.60 - UNSPECIFIED CIRRHOSIS OF LIVER SNOMED Code(s): 50689197 (3) Portal hypertension Current Visit: Yes Status: Acute Code(s): K76.6 - PORTAL HYPERTENSION SNOMED Code(s): 80757779 (4) Alcohol abuse Current Visit: Yes Status: Chronic Code(s): F10.10 - ALCOHOL ABUSE, UNCOMPLICATED SNOMED Code(s): 46372554 (5) Alcohol withdrawal Current Visit: Yes Status: Acute Code(s): F10.239 - ALCOHOL DEPENDENCE WITH WITHDRAWAL, UNSPECIFIED SNOMED Code(s): 647345654 (6) Alcoholic hepatitis with ascites Current Visit: Yes Status: Acute Code(s): K70.11 - ALCOHOLIC HEPATITIS WITH ASCITES SNOMED Code(s): 499434410 (7) Coagulopathy Narrative/Plan: Mild Current Visit: Yes Status: Acute Code(s): D68.9 - COAGULATION DEFECT, UNSPECIFIED SNOMED Code(s): 39621426 Plan: 1. Low-salt diet. 2. Continue Lasix 40 mg daily and Aldactone 100 mg daily. Assessment and plan a care discussed with Dr. Baker
[2017-12-11] MEDS: NICOTINE 14MG/24HR PATCH TRANSDERM SCH (09:51)
[2017-12-11] MEDS: SPIRONOLACTONE 25 MG TAB PO SCH (09:51)
[2017-12-11] MEDS: ENOXAPARIN 40 MG/0.4 ML SYRINGE SQ SCH (09:51)
[2017-12-11] MEDS: SODIUM CHLORIDE 0.9% 1,000 ML IV SCH (09:52)
[2017-12-11] MEDS: MULTIVITAMINS, THERA 1 EACH TAB PO SCH (09:52)
[2017-12-11] MEDS: THIAMINE 100 MG TAB PO SCH ×2 (09:52→18:45)
[2017-12-11] MEDS ORDERED: POTASSIUM CHLORIDE ER 20 MEQ TAB.ER PO STA (10:14)
--- NOTE | 2017-12-11 11:17 | P.PN ---
Subjective Progress Note Date: 12/11/17 Principal diagnosis: Liver cirrhosis Patient is a 57-year-old male with a past medical history of hypertension, COPD, chronic back pain, prior stroke, and coronary artery disease who presented to the ER via EMS after a fall. Patient had to crawl to his phone was unable to get himself up. He therefore called EMS and brought to the hospital. On initial evaluation his found to be tachycardic. Initial laboratory analysis showed an elevated total bilirubin and elevated alkaline phosphatase and AST. His albumin was slightly low at 2.8 and PTT was within normal range at 11.1. His lactic acid was slightly elevated at 3.9. Urinalysis was negative. CBC demonstrated a macrocytic anemia. Chest x-ray showed possible right lower lobe atelectasis versus infiltrate. The ER was concerned about gross ascites on clinical exam and asked for admission. He underwent a CT abdomen and pelvis which showed cirrhosis with gross ascites. He was placed on Lasix. 12/11: Patient was seen and examined today. He was up in the chair when I saw him. He does not have any specific concerns. He denies any abdominal pain. He said lower extremity edema is significantly better compared to when he first came into the hospital. His abdomen is still distended. No acute events overnight reported by nursing staff. Objective - Vital Signs Vital signs: Vital Signs Temp 98.3 F 12/11/17 08:00 Pulse 107 H 12/11/17 08:00 Resp 20 12/11/17 08:00 BP 113/74 12/11/17 08:00 Pulse Ox 98 12/11/17 08:00 Intake & Output 12/10/17 12/11/17 12/11/17 18:59 06:59 18:59 Intake Total 0 916 240 Output Total 750 Balance 0 166 240 Weight 80 kg 62.2 kg Intake: Intake, IV Titration 250 Amount Albumin Human 25% 50 ml 250 In Empty Bag 1 bag @ 200 mls/hr IVPB Q15M [facility] Rx#: [id number] Oral 0 666 240 Output: Urine 750 Other: Voiding Method Urinal Urinal # Voids 5 100 - Exam General: The patient is awake and alert, in no distress Eye: there is normal conjunctiva bilaterally. Neck: The neck is supple, there is no JVD. Cardiovascular: Normal S1-S2, no S3-S4, no murmurs. Respiratory: Lungs clear to auscultation bilaterally Gastrointestinal: Abdomen is soft, nontender. There is evidence of distention and fluid shifting suggestive for ascites Musculoskeletal: There is +1-2 pedal edema up to the midshin. Neurological:. Speech is normal. Skin: Skin is warm and dry - Labs CBC & Chem 7: 12/11/17 06:32 12/11/17 06:32 Labs: Abnormal Lab Results - Last 24 Hours (Table) 12/11/17 12/11/17 Range/Units 06:32 06:32 RBC 2.79 L (4.30-5.90) m/uL Hgb 9.3 L (13.0-17.5) gm/dL Hct 27.7 L (39.0-53.0) % Plt Count 129 L (150-450) k/uL Potassium 3.4 L (3.5-5.1) mmol/L Carbon Dioxide 32 H (22-30) mmol/L Creatinine 0.46 L (0.66-1.25) mg/dL Calcium 8.3 L (8.4-10.2) mg/dL Total Bilirubin 4.4 H (0.2-1.3) mg/dL AST 85 H (17-59) U/L Alkaline Phosphatase 197 H (38-126) U/L Total Protein 6.2 L (6.3-8.2) g/dL Albumin 2.5 L (3.5-5.0) g/dL Microbiology - Last 24 Hours (Table) 12/08/17 06:30 Blood Culture - Preliminary Blood No Growth after 72 hours Assessment and Plan Assessment: 1. Liver cirrhosis, newly diagnosed. Most likely alcoholic liver cirrhosis. Viral hepatitis panel was negative. Patient was seen by GI. Further workup as directed. 2. Large ascites, patient underwent paracentesis on 12/10 with approximately 14 L of fluid removed. He received albumin after the procedure. There is no evidence of SBP. Patient still have residual ascites that is seen is to be building up. I anticipate he would require another paracentesis within the next day or 2. Continue diuretics with Lasix 40 mg twice daily and Aldactone 100 mg once a day 3. Alcohol abuse with delirium tremens on presentation, now resolved. Continue CIWA protocol as needed 4. Fall with gait imbalance, PT/OT evaluation 5. Hypokalemia and hypomagnesemia, being replaced. Repeat lab work ordered for the morning 6. Severe protein/calorie malnutrition 7. Microcytic anemia with thrombocytopenia, most likely secondary to underlying liver disease. TSH, B12, and folic acid normal 8. Chronic low back pain Today, I reviewed his medication list and lab work results. Continue current regimen. Repeat lab work in the morning. Repeat ultrasound of the abdomen within the next day or 2 in anticipation of her repeat paracentesis prior to discharge.
[2017-12-11] MEDS: FUROSEMIDE 40 MG TAB PO SCH (17:51)
[2017-12-11] MEDS: oxyCODONE ER 10 MG TAB.ER.12H PO SCH (20:01)
[2017-12-11] MEDS ORDERED: FUROSEMIDE 10 MG/ML 4 ML VIAL IV SCH (21:00)
[2017-12-12] MEDS ORDERED: POTASSIUM CHLORIDE ER 20 MEQ TAB.ER PO STA ×2 (07:21→17:46)
[2017-12-12] MEDS: FUROSEMIDE 40 MG TAB PO SCH ×2 (07:55→16:07)
[2017-12-12] MEDS: oxyCODONE ER 10 MG TAB.ER.12H PO SCH ×2 (07:55→20:25)
[2017-12-12] MEDS: SPIRONOLACTONE 25 MG TAB PO SCH (07:56)
[2017-12-12] MEDS: ENOXAPARIN 40 MG/0.4 ML SYRINGE SQ SCH (07:57)
[2017-12-12] MEDS: NICOTINE 14MG/24HR PATCH TRANSDERM SCH (09:14)
[2017-12-12] MEDS: POTASSIUM CHLORIDE ER 20 MEQ TAB.ER PO SCH (09:14)
--- NOTE | 2017-12-12 09:33 | P.PN ---
Subjective Progress Note Date: 12/12/17 Principal diagnosis: Liver cirrhosis Patient is a 57-year-old male with a past medical history of hypertension, COPD, chronic back pain, prior stroke, and coronary artery disease who presented to the ER via EMS after a fall. Patient had to crawl to his phone was unable to get himself up. He therefore called EMS and brought to the hospital. On initial evaluation his found to be tachycardic. Initial laboratory analysis showed an elevated total bilirubin and elevated alkaline phosphatase and AST. His albumin was slightly low at 2.8 and PTT was within normal range at 11.1. His lactic acid was slightly elevated at 3.9. Urinalysis was negative. CBC demonstrated a macrocytic anemia. Chest x-ray showed possible right lower lobe atelectasis versus infiltrate. The ER was concerned about gross ascites on clinical exam and asked for admission. He underwent a CT abdomen and pelvis which showed cirrhosis with gross ascites. He was placed on Lasix. 12/11: Patient was seen and examined today. He was up in the chair when I saw him. He does not have any specific concerns. He denies any abdominal pain. He said lower extremity edema is significantly better compared to when he first came into the hospital. His abdomen is still distended. No acute events overnight reported by nursing staff. 12/12 there is no acute events overnight. No symptoms of withdrawal. Patient is awake and alert. He does not have any concerns. His abdomen is getting more distended compared to yesterday Objective - Vital Signs Vital signs: Vital Signs Temp 98.1 F 12/12/17 05:43 Pulse 105 H 12/12/17 05:43 Resp 20 12/12/17 05:43 BP 133/81 12/12/17 05:43 Pulse Ox 93 L 12/12/17 05:43 Intake & Output 12/11/17 12/12/17 12/12/17 18:59 06:59 18:59 Intake Total 440 1180 Output Total 750 Balance 440 430 Weight 75.3 kg Intake: Oral 440 1180 Output: Urine 750 Other: Voiding Method Urinal Urinal # Voids 4 3 # Bowel Movements 2 1 - Exam General: The patient is awake and alert, in no distress Eye: there is normal conjunctiva bilaterally. Neck: The neck is supple, there is no JVD. Cardiovascular: Normal S1-S2, no S3-S4, no murmurs. Respiratory: Lungs clear to auscultation bilaterally Gastrointestinal: Abdomen is soft, nontender. There is evidence of distention and fluid shifting suggestive for ascites worse than yesterday Musculoskeletal: There is +1-2 pedal edema up to the midshin. Neurological:. Speech is normal. Skin: Skin is warm and dry - Labs CBC & Chem 7: 12/11/17 06:32 12/11/17 06:32 Labs: Microbiology - Last 24 Hours (Table) 12/08/17 06:30 Blood Culture - Preliminary Blood No Growth after 96 hours Assessment and Plan Assessment: 1. Liver cirrhosis, newly diagnosed. Most likely alcoholic liver cirrhosis. Viral hepatitis panel was negative. Patient was seen by GI. Further workup as directed. 2. Large ascites, patient underwent paracentesis on 12/10 with approximately 14 L of fluid removed. He received albumin after the procedure. There is no evidence of SBP. Patient ascites is rapidly reaccumulating. I would order a repeat ultrasound and schedule repeat paracentesis today Continue diuretics with Lasix 40 mg twice daily and Aldactone 100 mg once a day 3. Alcohol abuse with delirium tremens on presentation, now resolved. Continue CIWA protocol as needed 4. Fall with gait imbalance, PT/OT evaluation. Recommended subacute rehab. magazine worker started the placement process 5. Hypokalemia and hypomagnesemia, being replaced. Repeat lab work ordered for the morning 6. Severe protein/calorie malnutrition 7. Microcytic anemia with thrombocytopenia, most likely secondary to underlying liver disease. TSH, B12, and folic acid normal 8. Chronic low back pain Today, I reviewed his medication list and lab work results. Continue current regimen. Repeat lab work in the morning. Repeat ultrasound of the abdomen today with possible paracentesis prior to discharge possibly tomorrow
[2017-12-12] MEDS: SODIUM CHLORIDE 0.9% 1,000 ML IV SCH (10:20)
[2017-12-12 10:45] LABS: Anion Gap 5 mmol/L; Blood Urea Nitrogen 11 mg/dL (9-20); Carbon Dioxide 33 mmol/L (22-30); Chloride 98 mmol/L (98-107); Glucose 110 mg/dL (74-99); Magnesium 1.6 mg/dL (1.6-2.3); Potassium 2.8 mmol/L (3.5-5.1); Sodium 136 mmol/L (137-145)
[2017-12-12] MEDS ORDERED: LORazepam 2 MG/ML INJ IV STA (10:49)
--- NOTE | 2017-12-12 10:53 | P.PN ---
Subjective Progress Note Date: 12/12/17 Principal diagnosis: Liver cirrhosis EtOH abuse massive ascites 57-year-old gentleman history of EtOH abuse admitted with worsening abdominal distention ascites. Status post paracentesis the other day with 14 L removed. Received albumin post-paracentesis. This morning he reports increased abdominal distention paracentesis scheduled today. Objective - Vital Signs Vital signs: Vital Signs Temp 98.1 F 12/12/17 05:43 Pulse 105 H 12/12/17 05:43 Resp 20 12/12/17 05:43 BP 133/81 12/12/17 05:43 Pulse Ox 93 L 12/12/17 05:43 Intake & Output 12/11/17 12/12/17 12/12/17 18:59 06:59 18:59 Intake Total 440 1180 Output Total 750 Balance 440 430 Weight 75.3 kg Intake: Oral 440 1180 Output: Urine 750 Other: Voiding Method Urinal Urinal # Voids 4 3 1 # Bowel Movements 2 1 - Exam General appearance: The patient is alert, to self only in no acute distress confused. HET: Head is normocephalic and atraumatic. Pupils are equal and reactive. Oropharynx is clear without lesions. Neck: Supple without lymphadenopathy. Trachea midline. Heart: S1 S2. Regular rate and rhythm. Lungs: No crackles or wheezes are heard. Abdomen: Soft, grossly distended with moderate ascites with bowel sounds. No peritoneal signs. No palpable organomegaly or masses. Extremities: Normal skin color and turgor. No cyanosis, rash, ulceration, clubbing, or edema. Radial and pedal pulses are 2/4 bilaterally. Blackman with dark sarah urine Neurological: No focal deficits. Strength and sensation are grossly intact. - Labs CBC & Chem 7: 12/11/17 06:32 12/12/17 09:36 Labs: Abnormal Lab Results - Last 24 Hours (Table) 12/12/17 Range/Units 09:36 Sodium 136 L (137-145) mmol/L Potassium 2.8 L (3.5-5.1) mmol/L Carbon Dioxide 33 H (22-30) mmol/L Creatinine 0.53 L (0.66-1.25) mg/dL Glucose 110 H (74-99) mg/dL Calcium 8.0 L (8.4-10.2) mg/dL Microbiology - Last 24 Hours (Table) 12/08/17 06:30 Blood Culture - Preliminary Blood No Growth after 96 hours Assessment and Plan (1) Ascites Narrative/Plan: s/p paracentesis Current Visit: Yes Status: Acute Code(s): R18.8 - OTHER ASCITES SNOMED Code(s): 029198785 (2) Liver cirrhosis Current Visit: Yes Status: Acute Code(s): K74.60 - UNSPECIFIED CIRRHOSIS OF LIVER SNOMED Code(s): 25648974 (3) Portal hypertension Current Visit: Yes Status: Acute Code(s): K76.6 - PORTAL HYPERTENSION SNOMED Code(s): 24891153 (4) Alcohol abuse Current Visit: Yes Status: Chronic Code(s): F10.10 - ALCOHOL ABUSE, UNCOMPLICATED SNOMED Code(s): 98536716 (5) Alcohol withdrawal Current Visit: Yes Status: Acute Code(s): F10.239 - ALCOHOL DEPENDENCE WITH WITHDRAWAL, UNSPECIFIED SNOMED Code(s): 056903843 (6) Alcoholic hepatitis with ascites Current Visit: Yes Status: Acute Code(s): K70.11 - ALCOHOLIC HEPATITIS WITH ASCITES SNOMED Code(s): 084294321 (7) Coagulopathy Current Visit: Yes Status: Acute Code(s): D68.9 - COAGULATION DEFECT, UNSPECIFIED SNOMED Code(s): 74036773 Plan: 1. Paracentesis today. Patient will require post-paracentesis albumin. 2. Low-salt diet. 3. Continue Lasix and Aldactone. Assessment and plan a care discussed with Dr. Baker
[2017-12-12] MEDS: MULTIVITAMINS, THERA 1 EACH TAB PO SCH (13:06)
[2017-12-12] MEDS: MAGNESIUM OXIDE 400 MG TAB PO SCH (13:06)
[2017-12-12] MEDS: THIAMINE 100 MG TAB PO SCH ×2 (13:06→16:07)
[2017-12-12] MEDS: ALBUMIN HUMAN 25% 50 ML in EMPTY BAG 1 BAG IVPB SCH ×4 (13:11→14:10)
--- NOTE | 2017-12-12 13:13 | US ---
Therapeutic paracentesis. DATE OF EXAM: 12/12/2017 CLINICAL HISTORY: Ascites The procedure was discussed with the patient. The risks, complications, benefits, and alternatives we re discussed and any questions were answered. Informed consent was obtained. The patient was placed s upine on the ultrasound table and prepped and draped in the usual sterile fashion. All elements of maximal barrier technique were utilized. Under ultrasound guidance, access into the right lower quadrant was obtained, via the paracentesis catheter system and direct ultrasound guidanc e. Approximately 7.2 liters of straw-colored fluid was removed. The patient was stable throughout the pr ocedure and remained stable upon discharge from Department of Radiology. IMPRESSION: Successful therapeutic paracentesis under ultrasound guidance.
[2017-12-13] MEDS: POTASSIUM CHLORIDE ER 20 MEQ TAB.ER PO SCH (07:30)
[2017-12-13] MEDS: ENOXAPARIN 40 MG/0.4 ML SYRINGE SQ SCH (07:30)
[2017-12-13] MEDS: NICOTINE 14MG/24HR PATCH TRANSDERM SCH (07:30)
[2017-12-13] MEDS: FUROSEMIDE 40 MG TAB PO SCH ×2 (09:38→16:36)
[2017-12-13] MEDS: SPIRONOLACTONE 25 MG TAB PO SCH (09:38)
[2017-12-13] MEDS: oxyCODONE ER 10 MG TAB.ER.12H PO SCH ×2 (09:41→20:48)
[2017-12-13 09:50] LABS: Anion Gap 5 mmol/L; Blood Urea Nitrogen 12 mg/dL (9-20); Calcium 8.2 mg/dL (8.4-10.2); Carbon Dioxide 31 mmol/L (22-30); Chloride 99 mmol/L (98-107); Glucose 147 mg/dL (74-99); Magnesium 1.7 mg/dL (1.6-2.3); Potassium 3.4 mmol/L (3.5-5.1); Sodium 135 mmol/L (137-145)
[2017-12-13] MEDS ORDERED: POTASSIUM BICARBONATE/CIT AC 20 MEQ TABLET.EFF PO ONE (11:21)
[2017-12-13] MEDS: SODIUM CHLORIDE 0.9% 1,000 ML IV SCH (11:31)
[2017-12-13 11:48] VITALS: BMI 23.8
[2017-12-13] MEDS: MULTIVITAMINS, THERA 1 EACH TAB PO SCH (12:11)
[2017-12-13] MEDS: MAGNESIUM OXIDE 400 MG TAB PO SCH (12:12)
[2017-12-13] MEDS: THIAMINE 100 MG TAB PO SCH ×2 (12:12→16:34)
[2017-12-13] MEDS ORDERED: FUROSEMIDE 40 MG TAB PO STA (12:14)
--- NOTE | 2017-12-13 13:56 | P.PN ---
Subjective Progress Note Date: 12/13/17 Principal diagnosis: Abdominal Pain Patient is a 57-year-old male with a past medical history of hypertension, COPD, chronic back pain, prior stroke, and coronary artery disease who presented to the ER via EMS after a fall. Patient had to crawl to his phone was unable to get himself up. He therefore called EMS and brought to the hospital. On initial evaluation his found to be tachycardic. Initial laboratory analysis showed an elevated total bilirubin and elevated alkaline phosphatase and AST. His albumin was slightly low at 2.8 and PTT was within normal range at 11.1. His lactic acid was slightly elevated at 3.9. Urinalysis was negative. CBC demonstrated a macrocytic anemia. Chest x-ray showed possible right lower lobe atelectasis versus infiltrate. The ER was concerned about gross ascites on clinical exam and asked for admission. He underwent a CT abdomen and pelvis which showed cirrhosis with gross ascites. He was placed on Lasix. On the morning of 12/09 he still had significant ascites and Aldactone was added. He was seen by GI. His Lasix and aldactone were increased. Went into DTs on the night of 12/10 and had increasing confusion. He underwent paracentesis on 12/10 with removal of 14L. He again underwent Para on 12/12 with removal of 7 L. He has been up and walking with assistance. Patient seen and examined at bedside. Shortness of breath is much better, pain is better. Still complaining of pain from his neck down to his back which is chronic in nature. Wants to go home and does not want to go to prison facility. We discussed the need for home health therapy with [facility] is agreeable to this. We also discussed that he needs to maintain sobriety. He has questions about his prognosis. He also will need to follow-up with GI and he would like Dr. Mckinnon is a PCP after discharge. Objective - Vital Signs Vital signs: Vital Signs Temp 98.6 F 12/13/17 06:00 Pulse 99 12/13/17 12:20 Resp 16 12/13/17 07:20 BP 95/62 12/13/17 12:20 Pulse Ox 92 L 12/13/17 06:00 Intake & Output 12/12/17 12/13/17 12/13/17 18:59 06:59 18:59 Intake Total 600 720 Output Total 200 Balance 600 520 Weight 75.5 kg Intake: Oral 600 720 Output: Urine 200 Other: Voiding Method Toilet Urinal # Voids 2 2 1 - Exam General: non toxic, no distress, disheveled, appears at stated age, normal weight Derm: Multiple abrasions right upper extremity with dressings inplace, multiple bruises bilateral upper extremities, warm, dry Head: atraumatic, normocephalic, symmetric Eyes: EOMI, no lid lag, anicteric sclera, pupils equal round reactive to light Cardiovascular: S1 and S2reg, no murmur, positive posterior tibial pulse bilateral, 2+ edema bilateral lower extremities, capillary refill less than 2 seconds Lungs: rhonchi b/l bases, no accessory muscle use Abdominal: Distended with fluid shift, soft, nontender to palpation, no guarding, no appreciable organomegaly but limited due to ascites, normal bowel sounds Ext: no gross muscle atrophy, no contractures, Neuro: CN II-XI grossly intact, light touch intact all 4 extremities, Psych: Alert, oriented, appropriate affect - Labs CBC & Chem 7: 12/11/17 06:32 12/13/17 09:16 Labs: Abnormal Lab Results - Last 24 Hours (Table) 12/13/17 Range/Units 09:16 Sodium 135 L (137-145) mmol/L Potassium 3.4 L (3.5-5.1) mmol/L Carbon Dioxide 31 H (22-30) mmol/L Creatinine 0.48 L (0.66-1.25) mg/dL Glucose 147 H (74-99) mg/dL Calcium 8.2 L (8.4-10.2) mg/dL Microbiology - Last 24 Hours (Table) 12/08/17 06:30 Blood Culture - Preliminary Blood No Growth after 120 hours Assessment and Plan Assessment: Ascites suspect underlying cirrhosis -Lasix and aldactone -GI recs appreciated -CT abdomen and pelvis with cirrhosis - Acute hepatitis panel negative, Tylenol level negative - CMP in AM - s/p paracentesis X 2 EtOH abuse with delirium tremens, improved -Thiamine supplementation -CIWA protocol Fall with multiple skin tears -Fall precautions -PT/OT evaluation -May need prison facility on discharge Hypokalemia -Replace and recheck in AM Severe protein calorie malnutrition -Supplementation -May be component of chronic liver disease Macrocytic anemia with thrombocytopenia - B12, TSH, and folic acid normal - follow CBC as outpatient Chronic low back pain -As needed pain medication - Pain management consult Elevated lactic acid, improved hypomagnesemia, resolved DVT prophylaxis: Lovenox Discussed with: Patient, nursing Anticipated discharge date: 24-[address]: Home with home health with RN. PT. Social work. and [employer] A total of 35 minutes was spent on the care of this complex patient more than 50 % of the time was spent in counseling and care coordination.
[2017-12-14 08:40] LABS: ALT 31 U/L (21-72); AST 78 U/L (17-59); Albumin 2.2 g/dL (3.5-5.0); Alkaline Phosphatase 182 U/L (38-126); Anion Gap 4 mmol/L; Blood Urea Nitrogen 12 mg/dL (9-20); Calcium 8.1 mg/dL (8.4-10.2); Carbon Dioxide 32 mmol/L (22-30); Chloride 99 mmol/L (98-107); Glucose 94 mg/dL (74-99); Magnesium 1.9 mg/dL (1.6-2.3); Potassium 3.3 mmol/L (3.5-5.1); Sodium 135 mmol/L (137-145); Total Bilirubin 2.8 mg/dL (0.2-1.3); Total Protein 5.8 g/dL (6.3-8.2)
[2017-12-14] MEDS: ENOXAPARIN 40 MG/0.4 ML SYRINGE SQ SCH (09:09)
[2017-12-14] MEDS: SPIRONOLACTONE 25 MG TAB PO SCH (09:09)
[2017-12-14] MEDS: NICOTINE 14MG/24HR PATCH TRANSDERM SCH (09:09)
[2017-12-14] MEDS: oxyCODONE ER 10 MG TAB.ER.12H PO SCH ×2 (09:10→21:15)
[2017-12-14] MEDS: FUROSEMIDE 40 MG TAB PO SCH ×2 (09:10→15:30)
[2017-12-14] MEDS: POTASSIUM CHLORIDE ER 20 MEQ TAB.ER PO SCH (09:10)
[2017-12-14] MEDS: SODIUM CHLORIDE 0.9% 1,000 ML IV SCH (09:11)
[2017-12-14] MEDS ORDERED: POTASSIUM BICARBONATE/CIT AC 20 MEQ TABLET.EFF PO ONE (09:29)
[2017-12-14] MEDS ORDERED: FUROSEMIDE 10 MG/ML 4 ML VIAL IV STA (09:29)
[2017-12-14] MEDS ORDERED: POTASSIUM CHLORIDE ER 20 MEQ TAB.ER PO STA (09:55)
[2017-12-14] MEDS: THIAMINE 100 MG TAB PO SCH ×2 (10:54→16:47)
[2017-12-14] MEDS: MULTIVITAMINS, THERA 1 EACH TAB PO SCH (10:54)
[2017-12-14] MEDS: MAGNESIUM OXIDE 400 MG TAB PO SCH (10:54)
[2017-12-14] MEDS ORDERED: POTASSIUM CHLORIDE ER 20 MEQ TAB.ER PO SCH (12:00)
--- NOTE | 2017-12-14 14:56 | P.PN ---
Subjective Progress Note Date: 12/14/17 (delayed cahrting patient seen at 0830) Principal diagnosis: Abdominal Pain Patient is a 57-year-old male with a past medical history of hypertension, COPD, chronic back pain, prior stroke, and coronary artery disease who presented to the ER via EMS after a fall. Patient had to crawl to his phone was unable to get himself up. He therefore called EMS and brought to the hospital. On initial evaluation his found to be tachycardic. Initial laboratory analysis showed an elevated total bilirubin and elevated alkaline phosphatase and AST. His albumin was slightly low at 2.8 and PTT was within normal range at 11.1. His lactic acid was slightly elevated at 3.9. Urinalysis was negative. CBC demonstrated a macrocytic anemia. Chest x-ray showed possible right lower lobe atelectasis versus infiltrate. The ER was concerned about gross ascites on clinical exam and asked for admission. He underwent a CT abdomen and pelvis which showed cirrhosis with gross ascites. He was placed on Lasix. On the morning of 12/09 he still had significant ascites and Aldactone was added. He was seen by GI. His Lasix and aldactone were increased. Went into DTs on the night of 12/10 and had increasing confusion. He underwent paracentesis on 12/10 with removal of 14L. He again underwent Para on 12/12 with removal of 7 L. He has been up and walking with assistance. Physical therapy has recommended residential facility. Patient adamantly refuses residential facility. He is agreeable to home health with [facility]. Patient seen and examined at bedside. Shortness of breath is better. Pain is still present, but is at his baseline. No nausea. No vomiting. No diarrhea. No increase in ascites. Attempted to have pain management see patient in the hospital today however they do not round on Fridays at the weekends. We called and left a message with office they will call him next week for an appointment. He will need to be discharged home on OxyContin with a seven-day supply. Objective - Vital Signs Vital signs: Vital Signs Temp 98.2 F 12/14/17 06:00 Pulse 91 12/14/17 09:10 Resp 18 12/14/17 09:10 BP 95/56 12/14/17 06:00 Pulse Ox 94 L 12/14/17 06:00 Intake & Output 12/13/17 12/14/17 12/14/17 18:59 06:59 18:59 Intake Total 720 Output Total 200 200 Balance 520 -200 Weight 75.5 kg 75.5 kg 75.5 kg Intake: Oral 720 Output: Urine 200 200 Other: Voiding Method Toilet Toilet Toilet Urinal Urinal Urinal # Voids 3 2 1 # Bowel Movements 1 - Exam General: non toxic, no distress, disheveled, appears at stated age, normal weight Derm: Multiple abrasions right upper extremity with dressings inplace, multiple bruises bilateral upper extremities, warm, dry Head: atraumatic, normocephalic, symmetric Eyes: EOMI, no lid lag, anicteric sclera, pupils equal round reactive to light Cardiovascular: S1 and S2 reg, no murmur, positive posterior tibial pulse bilateral, 1+ edema bilateral lower extremities, capillary refill less than 2 seconds Lungs: rhonchi b/l bases, no accessory muscle use Abdominal: Distended with fluid shift, soft, nontender to palpation, no guarding, no appreciable organomegaly but limited due to ascites, normal bowel sounds Ext: no gross muscle atrophy, no contractures, Neuro: CN II-XI grossly intact, light touch intact all 4 extremities, Psych: Alert, oriented, appropriate affect - Labs CBC & Chem 7: 12/11/17 06:32 12/14/17 07:37 Labs: Abnormal Lab Results - Last 24 Hours (Table) 12/14/17 Range/Units 07:37 Sodium 135 L (137-145) mmol/L Potassium 3.3 L (3.5-5.1) mmol/L Carbon Dioxide 32 H (22-30) mmol/L Creatinine 0.57 L (0.66-1.25) mg/dL Calcium 8.1 L (8.4-10.2) mg/dL Total Bilirubin 2.8 H (0.2-1.3) mg/dL AST 78 H (17-59) U/L Alkaline Phosphatase 182 H (38-126) U/L Total Protein 5.8 L (6.3-8.2) g/dL Albumin 2.2 L (3.5-5.0) g/dL Microbiology - Last 24 Hours (Table) 12/08/17 06:30 Blood Culture - Final Blood No Growth after 144 hours Assessment and Plan Assessment: Ascites suspect underlying cirrhosis -Lasix and aldactone -GI recs appreciated -CT abdomen and pelvis with cirrhosis - Acute hepatitis panel negative, Tylenol level negative - CMP in AM - s/p paracentesis X 2 EtOH abuse with delirium tremens, improved -Thiamine supplementation -CIWA protocol- no use since 12/10 Fall with multiple skin tears -Fall precautions -PT/OT recommending residential, patient adamantly refuses despits multiple conversations. He is going to arrange someone to stay with him for the next few nights and he is aware he is going home in the morning. Hypokalemia -Replace and recheck in AM Severe protein calorie malnutrition -Supplementation -May be component of chronic liver disease Macrocytic anemia with thrombocytopenia - B12, TSH, and folic acid normal - follow CBC as outpatient Chronic low back pain -Continue with oxycontin- RX written - Pain management will call him next week with appointment Elevated lactic acid, improved hypomagnesemia, resolved Plan is home in a.m. All Rx sent to pharmacy. Will have patient sign opiate start talking form. Patient is working on finding somebody to stay with him as despite talking about risks of falls, worsening condition, and risk for readmission he is still not wanting to go to residential facility. DVT prophylaxis: Lovenox Discussed with: Patient, nursing Anticipated discharge date: [address]: Home with home health with RN. PT. Social work. and [employer] A total of 30 minutes was spent on the care of this complex patient more than 50 % of the time was spent in counseling and care coordination.
[2017-12-15 00:07] VITALS: TEMP 98.6
[2017-12-15] MEDS: NICOTINE 14MG/24HR PATCH TRANSDERM SCH (07:43)
[2017-12-15] MEDS: SPIRONOLACTONE 25 MG TAB PO SCH (07:43)
[2017-12-15] MEDS: FUROSEMIDE 40 MG TAB PO SCH (07:43)
[2017-12-15 07:44] VITALS: BP 97/63; PULSE 85; RESP 17
[2017-12-15] MEDS: oxyCODONE ER 10 MG TAB.ER.12H PO SCH (07:44)
[2017-12-15] MEDS: ENOXAPARIN 40 MG/0.4 ML SYRINGE SQ SCH (07:44)
[2017-12-15] MEDS: MULTIVITAMINS, THERA 1 EACH TAB PO SCH (11:20)
[2017-12-15] MEDS: MAGNESIUM OXIDE 400 MG TAB PO SCH (11:20)
[2017-12-15] MEDS: THIAMINE 100 MG TAB PO SCH (11:20)
[2017-12-15] MEDS ORDERED: POTASSIUM CHLORIDE ER 20 MEQ TAB.ER PO SCH (12:00)
--- NOTE | 2017-12-15 13:55 | P.PN ---
Subjective No new events. Pt is up in the bed. He has chronic back pain that is unchanged from before. Reported no issues with diet. No SOB, CP, nausea, abd pain or diarrhea. No sob. Feeling much better. Ambulated wit huse of his walker. He refused custodial facility once more and opted to go home with the help of his neighbour. REVIEW OF SYSTEMS: CONSTITUTIONAL: No fever or chills HEENT: No changes in vision or voice CARDIOVASCULAR: no chest pain or abnormal heart beats, or any swelling in ankles or feet. RESPIRATORY: No wheezing or coughing. GASTROINTESTINAL: No abdominal pain, no nausea no vomiting no constipation or diarrhea GENITOURINARY: no any urinary urgency, frequency or burning, and there has been no blood in her urine. no flank pain. MUSCULOSKELETAL: She notes full range of motion of all her joints without pain or swelling. NEUROLOGICAL: , no headache. no vision changes, or fainting. No numbness or tingling. Objective - Vital Signs Vital signs: Vital Signs Temp 98.6 F 12/15/17 07:00 Pulse 85 12/15/17 07:00 Resp 17 12/15/17 07:00 BP 97/63 12/15/17 07:00 Pulse Ox 98 12/15/17 07:00 Intake & Output 12/14/17 12/15/17 12/15/17 18:59 06:59 18:59 Intake Total 600 500 Output Total 900 Balance -300 500 Weight 75.5 kg 69 kg Intake: Oral 600 500 Output: Urine 900 Other: Voiding Method Toilet Toilet Toilet Urinal Urinal Urinal # Voids 1 1 3 # Bowel Movements 1 - Exam General: No distress. Oriented x 3, normal mood and affect . Ambulating without difficulty with a walker HEENT: Head: Normocephalic, atraumatic, no visible or palpable masses, depressions, or scaring, conjunctiva clear, sclera non-icteric, EOM intact, PERRL Oral: Mucous membranes moist, no mucosal lesions. Pharynx: Mucosa non-inflamed, no tonsillar hypertrophy or exudate Neck: Supple, without lesions, bruits, or adenopathy, thyroid non-enlarged and non-tender Heart: No cardiomegaly or thrills; regular rate and rhythm, no murmur or gallop Lungs: Clear to auscultation and percussion Abdomen: Ascites, distention. Bowel sounds normal, no tenderness, organomegaly , masses. No guarding no rebound. Back: Spine normal without deformity or tenderness, no CVA tenderness Extremities: 1+ pitting edema in both lower extremities but no warmth or erythema. No joint swelling. Musculoskeletal: No peripheral joint swelling, pain, erythema. No clubbing Neurologic: No asterixis. No focal deficits. Strength in both lower extremities 5 out of 5 proximally and distally no clonus plantar is flexor bilaterally. - Labs CBC & Chem 7: 12/11/17 06:32 12/14/17 07:37 Assessment and Plan Plan: 1. Ascites due to liver cirrhosis presumably alcoholic in nature New onset, new diagnosis Status post 2 therapeutic paracentesis Patient have significant symptomatic relief Continue Lasix and Aldactone in view of peripheral edema Gastroenterology following Avoidance of alcohol and Tylenol 2. Hypokalemia Multifactorial Replace Potassium pending this morning Magnesium stable 3. Acute on chronic debility Due to medical illness and overall deconditioning Recommended to be discharged to custodial facility but he refused that and wants to go home with the help of his neighbor Plan is for discharge home with the help of people that patient intensified as a potential assistance. We will order potassium this morning if potassium level stable TO be discharge home from our standpoint.
--- NOTE | 2017-12-15 14:31 | P.DS ---
Providers Date of admission: 12/08/17 09:36 Attending physician: Preeti Mo DO Consults: 12/08/17 09:37 Consult Physician Urgent Consulting Provider: Liliana Thurston Consult Reason/Comments: ascites Do you want consulting provider notified?: Yes 12/13/17 18:39 Consult Physician Routine Consulting Provider: Sobeida Nowak Consult Reason/Comments: chronic back pain, cirrhosis Do you want consulting provider notified?: Yes Primary care physician: Stated None Hospital Course: 57-year-old male history of chronic back pain and chronic pain medication use admitted after sustaining a fall at home. He was admitted with generalized weakness and swelling of his abdomen. He was found to have massive ascites and liver cirrhosis and the CT of abdomen and pelvis. He underwent to paracentesis with 14 and 7 L removal. There was no sign of malignancy of but the histology or infection and the fluid was transudate in nature. He also had some shortness of breath due to massive ascites which resolved on the day of discharge. On the day of discharge patient was seen and evaluated, see my daily progress note for this. He was without any shortness of breath chest pain abdominal pain fever chills nausea vomiting. He was ambulating with a walker and he was tolerating diet. He was recommended to go to prison facility which he refused and insisted of being home with the help of his neighbor who came in pickup the patient for discharge. Discharge medications were or they set up by the previous provider Dr. Lara, and send to the patient preferential pharmacy. Patient already signed a consent and agreement mandated by [facility] with Dr. Lara . I also went over his opioid prescription, explained side effects and risks especially if mixed with alcohol or other sedatves. Patient has long standing h/o opioid meds use and has tolerated pain medications here well. Also he can take his lasix once a day in am for now. Patient is to have BMP rechecked in 2 days 9on Sunday). We discussed this and script for BMP given with instructions to call PCP office wit hresults. follow -up with his PCP is scheduled in 3 days as well. 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 Home care service was provided. Procedures: Abdominal ultrasound guided paracentesis 2 Patient Condition at Discharge: Fair Plan - Discharge Summary Discharge Rx Participant: Yes New Discharge Prescriptions: New Furosemide [Lasix] 40 mg PO BID@0900,1600 #60 tab Magnesium Oxide [Mag-Ox] 400 mg PO 1200 #30 tab Potassium Chloride ER [K-Dur 20] 40 meq PO DAILY #60 tab.er.prt Spironolactone [Aldactone] 100 mg PO DAILY #30 tab Morphine Sulfate ER [Ms Contin] 15 mg PO Q12HR 30 Days #60 tab Discharge Medication List Furosemide [Lasix] 40 mg PO BID@0900,1600 #60 tab 12/14/17 [Rx] Magnesium Oxide [Mag-Ox] 400 mg PO 1200 #30 tab 12/14/17 [Rx] Morphine Sulfate ER [Ms Contin] 15 mg PO Q12HR 30 Days #60 tab 12/14/17 [Rx] Potassium Chloride ER [K-Dur 20] 40 meq PO DAILY #60 tab.er.prt 12/14/17 [Rx] Spironolactone [Aldactone] 100 mg PO DAILY #30 tab 12/14/17 [Rx] Follow up Appointment(s)/Referral(s): Rafal Mckinnon MD [STAFF PHYSICIAN] - 12/18/17 9:30 am Liliana Thurston MD [STAFF PHYSICIAN] - 12/27/17 2:30 pm [facility], [NON-STAFF] - Anesthesia,Services [STAFF PHYSICIAN] - 1 Week Ambulatory/Diagnostic Orders: Basic Metabolic Panel [LAB.AMB] Time Frame: 3 Days, Location: None Selected Patient Instructions/Handouts: Ascites (DC) Activity/Diet/Wound Care/Special Instructions: low salt diet, 1.2L fluid restriction Activity as tolerated. Discharge Disposition: HOME WITH HOME HEALTH SERVICES
== END 2017-12-15 16:02 | disposition home health service (06) | DRG 432 ==
LOC: EC 06:13 → SUPCPDRO 06:13 → 3NMEDONC 09:36 → 3SCARD 13:23 → 4MS4W 12-11 11:53
PROVIDERS: ADMIT Internal Medicine; ATTEND Internal Medicine
PROC: 0W9G3ZZ Drainage of Peritoneal Cavity, Percutaneous Approach (ICD-10-PCS; principal; 2017-12-10)
PROC: 0W9G3ZZ Drainage of Peritoneal Cavity, Percutaneous Approach (ICD-10-PCS; 2017-12-12)
DX: K70.31 Alcoholic cirrhosis of liver with ascites (principal); E43 Unspecified severe protein-calorie malnutrition; D68.9 Coagulation defect, unspecified; F10.231 Alcohol dependence with withdrawal delirium; K76.6 Portal hypertension; K70.11 Alcoholic hepatitis with ascites; D63.8 Anemia in other chronic diseases classified elsewhere; D69.59 Other secondary thrombocytopenia; Z68.21 Body mass index [BMI] 21.0-21.9, adult; E83.42 Hypomagnesemia; E87.6 Hypokalemia; E87.70 Fluid overload, unspecified; F17.200 Nicotine dependence, unspecified, uncomplicated; F32.9 Major depressive disorder, single episode, unspecified; G89.29 Other chronic pain; I10 Essential (primary) hypertension; I25.10 Atherosclerotic heart disease of native coronary artery without angina pectoris; J44.9 Chronic obstructive pulmonary disease, unspecified; K59.00 Constipation, unspecified; R29.6 Repeated falls; R32 Unspecified urinary incontinence; W10.9XXA Fall (on) (from) unspecified stairs and steps, initial encounter; Y93.01 Activity, walking, marching and hiking; Z79.891 Long term (current) use of opiate analgesic; Z82.49 Family history of ischemic heart disease and other diseases of the circulatory system; Z86.73 Personal history of transient ischemic attack (TIA), and cerebral infarction without residual deficits
CPT/HCPCS: 36415; 49083; 71045; 74176; 80048; 80053; 80074; 81003; 82042; 82105; 82140; 82607; 82746; 82945; 83520; 83605; 83735; 83880; 84157; 84443; 84484; 85025; 85027; 85610; 85730; 87040; 87086; 88108; 88305; 89050; 93005; 94760; 96372; 96374; 96375; 96376; 99285

== ENCOUNTER → 2018-01-02 | Outpatient (CLI) | payer MEDICARE, OTHER ==
--- NOTE | 2018-01-02 19:32 | US ---
EXAMINATION TYPE: US carotid duplex BILAT DATE OF EXAM: 01/02/2018 COMPARISON: NONE CLINICAL HISTORY: 57-year-old male I65.22 left carotid stenosis. TECHNIQUE: Carotid duplex ultrasound examination. Indirect Doppler criteria was utilized. FINDINGS: EXAM MEASUREMENTS: RIGHT: Peak Systolic Velocity (PSV) cm/sec ----- Right CCA: 58.8 ----- Right ICA: 234.5 ----- Right ECA: 101.0 ICA/CCA ratio: 4.0 RIGHT: End Diastole cm/sec ----- Right CCA: 27.5 ----- Right ICA: 131.5 ----- Right ECA: 27.7 LEFT: Peak Systolic Velocity (PSV) cm/sec ----- Left CCA: 59.0 ----- Left ICA: 418.7 ----- Left ECA: 107.4 ICA/CCA ratio: 7.1 LEFT: End Diastole cm/sec ----- Left CCA: 21.5 ----- Left ICA: 216.8 ----- Left ECA: 18.7 VERTEBRALS (direction of flow): Right Vertebral: Antegrade Left Vertebral: Antegrade Rhythm: Normal Digital Imaging Technician notes: Severe plaque seen bilaterally, worse on left. Bilateral high grade stenosis seen, worse on the left. IMPRESSION: Severe bilateral atherosclerotic changes at the bifurcations with severe, greater than 70% stenosis a t the bilateral proximal ICAs, left greater than right. Criteria for Assigning % of Stenosis / Diameter reduction (Estimation based on the indirect measurements of the internal carotid artery velocities (ICA PSV). 1. Normal (no stenosis)=ICA PSV < 125 cm/s: ratio < 2.0: ICA EDV<40 cm/s. 2. Less than 50% stenosis=ICA PSV < 125 cm/s: ratio < 2.0: ICA EDV<40 cm/s. 3. 50 to 69% stenosis=ICA PSV of 125 to 230 cm/s: ration 2.0 ? 4.0: ICA EDV 40-100 cm/s. 4. Greater than 70% stenosis to near occlusion= ICA PSV > 230 cm/s: ratio > 4.0: ICA EDV > 100 cm/s. 5. Near occlusion= ICA PSV velocities may be low or undetectable: variable ratio and ICA EDV. 6. Total occlusion=unable to detect flow.
== END | disposition home or self-care (01) ==
LOC: RADUSWWP 13:23
PROVIDERS: ATTEND Family Medicine
DX: I65.23 Occlusion and stenosis of bilateral carotid arteries (principal)
CPT/HCPCS: 93880

== ENCOUNTER → 2018-01-17 | Outpatient (CLI) | payer MEDICARE, OTHER ==
--- NOTE | 2018-01-17 09:35 | CT ---
EXAMINATION TYPE: CT angio neck DATE OF EXAM: 01/17/2018 HISTORY: abnormal ultrasound. Carotid stenosis. COMPARISON: Carotid ultrasound dated 01/02/2018 CT DLP: 151.5 mGycm. Automated Exposure Control for Dose Reduction was Utilized. TECHNIQUE: CTA scan of the neck is performed with IV Contrast, patient injected with 65 mL of Isovue 370, axial images are obtained, coronal and sagittal reformatted images are reviewed. Three-D recons tructed images are created on an independent workstation and reviewed. FINDINGS: Carotid/Vascular Structures: There is a conventional three-vessel branch pattern of the aortic arch. Mild atherosclerosis is seen of the aortic arch and at the ostia of the great vessels. There is appro ximately 50% stenosis of the origin of the subclavian artery with extent for 1.7 cm in length. Distal to this beginning approximately 2.2 cm from the origin of the left subclavian artery and extending 6 mm in length there is approximately 85% stenosis. This is proximal to the origin of the left vertebr al artery. The common carotid arteries and a straight only minimal nonhemodynamically significant atheromatous p laquing. Within the carotid bulb on the right there is less than 50% stenosis, however stenosis is seen in the right internal carotid artery as follows: There is approximately 50% stenosis for a length of 6 mm e xtending from the origin of the right internal carotid artery cranially. Subsequently beginning 6 mm from the origin there is both calcific and noncalcific atheromatous plaquing creating 80% stenosis me asuring a length of 9 mm. Within the remaining cervical portion of the right internal carotid artery there is no hemodynamically significant stenosis. Within the left carotid bulb there is approximately 60% stenosis. Extending from the origin of the le ft internal carotid artery at the carotid bulb over a distance of 9 mm in length there is approximate ly 90% stenosis. Distal to this the remaining visualized cervical portions of the left internal carot id artery are patent. Minimal nonhemodynamically significant calcific atheromatous plaquing is seen of the cavernous and trejo praclinoid portions of the internal carotid arteries. The visualized portions of the [place] of [place] appear grossly patent. 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 The right vertebral artery is dominant. Other: Minimal emphysematous changes are seen at the lung apices as well as minimal apical pleural pa renchymal scarring. Moderate multilevel degenerative changes of the cervical spine are noted. The thy roid gland appears prominent in size. Paranasal sinuses and mastoid air cells are well aerated. Parot id glands and submandibular glands are symmetric. No appreciated cervical adenopathy. IMPRESSION: 1. High-grade approximately 90% focal stenosis of the left internal carotid artery beginning at the o rigin extending 9mm in length composed of calcific and noncalcific atheromatous plaque. 2. Stenosis of 80% on the right internal carotid artery beginning 6 mm from its origin at the carotid bulb and extending over 9 mm in length. 3. Stenosis of the left carotid bulb focally of approximately 60% and within the right carotid bulb o f approximately 50%. 50% stenosis on the right extends from the carotid bulb into the proximal internet technology manager al carotid artery for a length of 6 mm transitioning into the 80% stenosis as described above in impr ession #2.
== END ==
LOC: RADCTMAIN 07:50
PROVIDERS: ATTEND Family Medicine
DX: I65.23 Occlusion and stenosis of bilateral carotid arteries (principal)
CPT/HCPCS: 70498; Q9967

== ENCOUNTER 2018-02-15 12:17 | Day surgery (SDC) | payer MEDICARE, OTHER ==
[2018-02-15 13:47] LABS: INR 1.1 (<1.2); Prothrombin Time 11.6 sec (9.0-12.0)
[2018-02-15 13:53] LABS: Platelet Count 287 k/uL (150-450)
[2018-02-15] MEDS: ALBUMIN HUMAN 25% 50 ML in EMPTY BAG 1 BAG IVPB SCH ×3 (14:42→15:14)
[2018-02-15 14:46] VITALS: RESP 18; TEMP 98.2
[2018-02-15 16:25] VITALS: BP 101/67; PULSE 75
--- NOTE | 2018-02-18 09:41 | US ---
Therapeutic paracentesis. DATE OF EXAM: 02/15/2018 CLINICAL HISTORY: Ascites The procedure was discussed with the patient. The risks, complications, benefits, and alternatives we re discussed and any questions were answered. Informed consent was obtained. The patient was placed s upine on the ultrasound table and prepped and draped in the usual sterile fashion. All elements of maximal barrier technique were utilized. Under ultrasound guidance, access into the right lower quadrant was obtained, via the paracentesis catheter system and direct ultrasound guidanc e. Approximately 15.5 liters of straw-colored fluid was removed. The patient was stable throughout the p rocedure and remained stable upon discharge from Department of Radiology. IMPRESSION: Successful therapeutic paracentesis under ultrasound guidance.
== END 2018-02-15 16:44 | disposition home or self-care (01) ==
LOC: RADPROMAIN 12:17
PROVIDERS: ATTEND Family Medicine
DX: R18.0 Malignant ascites (principal)
CPT/HCPCS: 82565; 85049; 85610; 36415; 49083; P9047

== ENCOUNTER 2018-03-08 11:54 | Day surgery (SDC) | payer MEDICARE ==
[2018-03-08] MEDS ORDERED: ALPRAZolam 0.5 MG TAB PO ONE (12:49)
[2018-03-08 12:54] VITALS: TEMP 98.4
[2018-03-08 12:57] LABS: Mean Platelet Volume 6.3; Platelet Count 296 k/uL (150-450)
[2018-03-08 13:05] LABS: INR 1.1 (<1.2); Prothrombin Time 11.3 sec (9.0-12.0)
[2018-03-08] MEDS: ALBUMIN HUMAN 25% 50 ML in EMPTY BAG 1 BAG IVPB SCH ×4 (13:59→14:41)
[2018-03-08 14:37] VITALS: RESP 14
[2018-03-08 15:33] VITALS: BP 114/71; PULSE 73
--- NOTE | 2018-03-08 16:13 | US ---
EXAMINATION TYPE: US paracentesis abd w/image DATE OF EXAM: 03/08/2018 COMPARISON: NONE HISTORY: Ascites. PROCEDURE: Maximal barrier technique was utilized. The skin overlying a suitable pocket of fluid was localized with ultrasound and the overlying skin was prepped and draped. Ultrasound was utilized with sterile technique. Lidocaine was used for local anesthesia and a skin cheryl made with a scalpel. Catheter was advanced under direct ultrasound guidance into a suitable pocket of fluid and approximately 9.7 liter s of serous fluid were removed. Catheter was withdrawn and hemostasis achieved. There is no immedia te complication; the patient is discharged in stable condition. IMPRESSION: STATUS POST ULTRASOUND GUIDED PARACENTESIS FOR PALLIATION OF ASCITES. THIS PROCEDURE WA S PERFORMED BY THE UNDERSIGNED.
== END 2018-03-08 15:15 | disposition home or self-care (01) ==
LOC: RADPROMAIN 11:54
PROVIDERS: ATTEND Family Medicine
DX: R18.8 Other ascites (principal)
CPT/HCPCS: 82565; 85049; 85610; 49083; P9047

== ENCOUNTER 2018-04-08 11:23 | Day surgery (SDC) | payer MEDICARE ==
[2018-04-08 12:31] VITALS: RESP 16; TEMP 97.6
[2018-04-08] MEDS ORDERED: ALPRAZolam 0.5 MG TAB PO STA (12:31)
[2018-04-08 12:34] LABS: INR 1.1 (<1.2); Prothrombin Time 11.1 sec (9.0-12.0)
[2018-04-08 12:35] LABS: Mean Platelet Volume 6.2; Platelet Count 303 k/uL (150-450)
[2018-04-08] MEDS: ALBUMIN HUMAN 25% 50 ML in EMPTY BAG 1 BAG IVPB SCH ×4 (13:53→14:46)
[2018-04-08 15:26] VITALS: BP 119/71; PULSE 87
--- NOTE | 2018-04-08 15:58 | US ---
Therapeutic paracentesis. DATE OF EXAM: 04/08/2018 CLINICAL HISTORY: Ascites The procedure was discussed with the patient. The risks, complications, benefits, and alternatives we re discussed and any questions were answered. Informed consent was obtained. The patient was placed s upine on the ultrasound table and prepped and draped in the usual sterile fashion. All elements of maximal barrier technique were utilized. Under ultrasound guidance, access into the right lower quadrant was obtained, via the paracentesis catheter system and direct ultrasound guidanc e. Approximately 9 liters of straw-colored fluid was removed. The patient was stable throughout the proc edure and remained stable upon discharge from Department of Radiology. IMPRESSION: Successful therapeutic paracentesis under ultrasound guidance.
== END 2018-04-08 15:20 | disposition home or self-care (01) ==
LOC: RADPROMAIN 11:23
PROVIDERS: ATTEND Family Medicine
DX: R18.8 Other ascites (principal)
CPT/HCPCS: 82565; 85049; 85610; 36415; 49083; P9047

== ENCOUNTER 2018-05-06 10:45 | Day surgery (SDC) | payer MEDICARE ==
[2018-05-06] MEDS ORDERED: ALPRAZolam 0.5 MG TAB PO ONE (11:49)
[2018-05-06 12:04] VITALS: RESP 20; TEMP 97.6
[2018-05-06 12:30] LABS: Mean Platelet Volume 6.6; Platelet Count 288 k/uL (150-450)
[2018-05-06 12:56] LABS: Prothrombin Time 10.9 sec (9.0-12.0)
[2018-05-06] MEDS: ALBUMIN HUMAN 25% 50 ML in EMPTY BAG 1 BAG IVPB SCH ×4 (13:33→14:19)
[2018-05-06 14:01] VITALS: PULSE 80
[2018-05-06 14:15] VITALS: BP 115/73
--- NOTE | 2018-05-06 14:28 | US ---
Therapeutic paracentesis. DATE OF EXAM: 05/06/2018 CLINICAL HISTORY: Ascites The procedure was discussed with the patient. The risks, complications, benefits, and alternatives we re discussed and any questions were answered. Informed consent was obtained. The patient was placed s upine on the ultrasound table and prepped and draped in the usual sterile fashion. All elements of maximal barrier technique were utilized. Under ultrasound guidance, access into the right lower quadrant was obtained, via the paracentesis catheter system and direct ultrasound guidanc e. Approximately 6.6 liters of straw-colored fluid was removed. The patient was stable throughout the pr ocedure and remained stable upon discharge from Department of Radiology. IMPRESSION: Successful therapeutic paracentesis under ultrasound guidance.
== END 2018-05-06 14:31 | disposition home or self-care (01) ==
LOC: RADPROMAIN 10:45
PROVIDERS: ATTEND Family Medicine
DX: R18.8 Other ascites (principal)
CPT/HCPCS: 82565; 85049; 85610; 36415; 49083; P9047